=== PATIENT | female | born 1970 | race Caucasian/White ===

== ENCOUNTER 2016-02-25 12:44 | Emergency (ER) | payer OTHER ==
--- NOTE | 2016-02-25 14:17 | DIAGNOSTIC IMAGING REPORT ---
PROCEDURE: XR CHEST 2 VIEW INDICATION: SHORTNESS OF BREATH, initial encounter TECHNIQUE: PA and lateral view. COMPARISON: None. FINDINGS: Small right middle lobe infiltrate. Pericardial fat pads are present pill Cardiovascular structures are normal. Bony thorax is unremarkable. IMPRESSION: 1. Right middle lobe infiltrate .
--- NOTE | 2016-02-25 16:57 | DIAGNOSTIC IMAGING REPORT ---
PROCEDURE: CTA THORAX WITH CONTRAST INDICATION: SHORTNESS OF BREATH, initial encounter TECHNIQUE: 92 ml of Isovue 370 was injected intravenously and axial images were obtained of the entire thorax with 3D sagittal and coronal MIP reconstructions. COMPARISON: Chest x-ray 02/25/[address] pulmonary angiogram 11/16/2015. FINDINGS: No evidence of pulmonary emboli. Mild bibasilar atelectasis. No adenopathy or effusion. No aortic dissection or aneurysm. Normal heart size. Visualized upper abdomen is unremarkable. Mild degenerative changes of the spine. IMPRESSION: 1. No evidence of pulmonary emboli. 2. Mild bibasilar atelectasis 3. Results discussed with Dr. Arenas
--- NOTE | 2016-02-25 17:42 | ED ORDER SUMMARY ---
..... Patient: FRED YU [facility] VisitID: [id number] [place] [address] 45y, F Registration Date/Time: 02/25/2016 ORDER SHEET Weight: 140 kg Allergies: Percocet GENERAL ORDERS: Chest 2V Urgent (13:02/25/2016 Brandyn CARLIN) (Ack 13:32 Tyron) (14:49 Bree) Rapid Influenza Screen (Nasal Pharyngeal) (911 EMERGENCY DISPATCHER) Urgent (13:02/25/2016 Brandyn CARLIN) (Ack 13:32 Tyron) (13:44 EInderbitzen R.N.) CBC w Diff Urgent (13:02/25/2016 Brandyn CARLIN) (Ack 13:32 Tyron) (13:44 EInderbitzen R.N.) CMP Urgent (13:02/25/2016 Brandyn CARLIN) (Ack 13:32 Tyron) (13:44 EInderbitzen R.N.) Urine Urgent (13:30 02/25/2016 Brandyn CARLIN) (Ack 13:32 Tyron) (13:44 EInderbitzen R.N.) PT with INR Urgent (14:02/25/2016 Brandyn CARLIN) (Ack 14:27 LTapper) (15:29 EInderbitzen R.N.) PTT Urgent (14:02/25/2016 Brandyn CARLIN) (Ack 14:27 LTapper) (15:29 EInderbitzen R.N.) D-Dimer Urgent (14:22 02/25/2016 Brandny CARLIN) (Ack 14:27 LTapper) (15:29 EInderbitzen R.N.) CTA Thorax w Cont (No) (See report) Urgent (15:02/25/2016 Brandyn CARLIN) (Ack 15:26 Tyron) (16:50 Bree) MEDICATION ORDERS: Albuterol Neb Tx 2.5 mg (NOW) (13:02/25/2016 Prakash R.N. per protocol) (Ack 13:01 SBaldcordell R.N.) (13:01 Prakash R.N.) - (Tamiflu 75 mg po now) (17:12 02/25/2016 Brandyn CARLIN) (17:13 EInderbitmaryam R.N.) IV FLUIDS: Solu-MEDROL IV 125 mg (NOW) (13:29 02/25/2016 Brandyn CARLIN) (13:44 EInderbitmaryam R.N.) IV Saline Lock (13:30 02/25/2016 Brandyn CARLIN) (13:44 EIiva R.N.) IV NS : initial bolus 500 mL (1000 mL/hr), then 125 mL/hr for 4h (NOW); Urgent (15:23 02/25/2016 Brandyn CARLIN) (Ack 15:29 EInderbitzen R.N.) (15:38 EInderbitzen R.N.) ORDER SHEET NOTES: [Electronically signed by Naoim Powell R.N. (17:52 02/25/2016)] [Electronically signed by Georges Arenas MD (19:24 02/25/2016)] [Electronically locked/signed by Naomi Powell R.N. (17:52 02/25/2016)]
--- NOTE | 2016-02-25 17:42 | ED ORDER SUMMARY ---
..... Patient: FRED YU OrderSheet [facility] VisitID: [id number] [place] [address] 45y, F Registration Date/Time: 02/25/2016 ORDER SHEET Weight: 140 kg Allergies: Percocet GENERAL ORDERS: Chest 2V Urgent (13:02/25/2016 Brandyn CARLIN) (Ack 13:32 Tyron) (14:49 Bree) Rapid Influenza Screen (Nasal Pharyngeal) (ROUTE RETURNER) Urgent (13:02/25/2016 Brandyn CARLIN) (Ack 13:32 Tyron) (13:44 EInderbitzen R.N.) CBC w Diff Urgent (13:02/25/2016 Brandyn CARLIN) (Ack 13:32 Tyron) (13:44 EInderbitzen R.N.) CMP Urgent (13:02/25/2016 Brandyn CARLIN) (Ack 13:32 Tyron) (13:44 EInderbitzen R.N.) Urine Urgent (13:30 02/25/2016 Brandyn CARLIN) (Ack 13:32 Tyron) (13:44 EInderbitzen R.N.) PT with INR Urgent (14:02/25/2016 Brandyn CARLIN) (Ack 14:27 LTapper) (15:29 EInderbitzen R.N.) PTT Urgent (14:02/25/2016 Brandyn CARLIN) (Ack 14:27 LTapper) (15:29 EInderbitzen R.N.) D-Dimer Urgent (14:22 02/25/2016 Brandyn CARLIN) (Ack 14:27 LTapper) (15:29 EInderbitzen R.N.) CTA Thorax w Cont (No) (See report) Urgent (15:02/25/2016 Brandyn CARLIN) (Ack 15:26 Tyron) (16:50 Bree) MEDICATION ORDERS: Albuterol Neb Tx 2.5 mg (NOW) (13:02/25/2016 Prakash R.N. per protocol) (Ack 13:01 SBaldcordell R.N.) (13:01 Prakash R.N.) - (Tamiflu 75 mg po now) (17:12 02/25/2016 Brandyn CARLIN) (17:13 EInderbitmaryam R.N.) IV FLUIDS: Solu-MEDROL IV 125 mg (NOW) (13:29 02/25/2016 Brandyn CARLIN) (13:44 EInderbitmaryam R.N.) IV Saline Lock (13:30 02/25/2016 Brandyn CARLIN) (13:44 EIiva R.N.) IV NS : initial bolus 500 mL (1000 mL/hr), then 125 mL/hr for 4h (NOW); Urgent (15:23 02/25/2016 Barndyn CARLIN) (Ack 15:29 EInderbitzen R.N.) (15:38 EInderbitzen R.N.) ORDER SHEET NOTES: [Electronically signed by Naomi Powell R.N. (17:52 02/25/2016)] [Electronically signed by Georges Arenas MD (19:24 02/25/2016)] [Electronically locked/signed by Naomi Powell R.N. (17:52 02/25/2016)]
--- NOTE | 2016-02-25 17:42 | ED NURSING NOTES ---
Clinical Report - Nurses [facility] [address] [place] [address] 02/25/2016 12:45 [id number] Triage time 12:52 Feb 25 2016. Acuity: LEVEL 2. Chief Complaint: SHORTNESS OF BREATH, DIFFICULTY BREATHING, "ASTHMA ATTACK" and WHEEZING. Alert. No acute distress. (anxious). --13:01 Bhumi Higgins R.N. 12:52 02/25/16. HR: 90. RR: 22. O2 saturation: 92%. --13:01 Bhumi Higgins R.N. 13:06 02/25/16. BP: 112/67. --13:07 Bhumi Higgins R.N. 13:09 02/25/16. Temp: 98.1 F. --13:09 Prince Lilly. Weight: 140 kg. Height/Length: 71 inches. BMI: 43.1. --12:51 Naomi Powell R.N. Medications Albuterol Sulfate HFA Inhalation 2 puffs, 6 x day, asthma. Morphine Sulfate (Concentrate) Oral 15mg, BID. Morphine Sulfate CR Oral 30mg, TID. ProAir HFA Inhalation 2 puffs, every 4 hrs (prn). --12:58 Bhumi Higgins R.N. Medication/allergy information source: the patient. --13:01 Bhumi Higgins R.N. Allergies Percocet. Definite Moderate(nausea, vomiting) --12:58 Bhumi Higgins R.N. History Arrived by private vehicle. Historian: patient. Primary physician (Zena Willoughby). ( Pt has been on Z Pack and Prednisone 5 days. completed course, no better, still wheezing, and deep cough, sore throat from coughing.). Onset. (since 0600). She has had wheezing. 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 PAST MEDICAL HX: Asthma. Has not received seasonal influenza immunization. SOCIAL HX: Never smoker. No alcohol use or drug use. No infectious disease exposure. FALL RISK ASSESSMENT: Fall risk assessment completed. No fall risk identified. NUTRITIONAL RISK ASSESSMENT: The nutritional risk assessment revealed no deficiencies. FUNCTIONAL ASSESSMENT: Functional assessment: no impairments noted. LEARNING NEEDS ASSESSMENT: The learning needs assessment revealed no barriers. SKIN INTEGRITY ASSESSMENT: Skin integrity risk assessment completed. No skin integrity risk identified. --13:01 Bhumi Higgins R.N. PROBLEMS: Anxiety Reaction. Atypical Chest Pain. Dyspnea. Pneumonia. URI. LNMP - Last Normal Menstrual Period. Muscle Strain, Lower Extremity. Fall. Knee Injury. Lung Disease. Tetanus Status. UTI - Urinary Tract Infection. Myofascial Strain. Back Pain. Back Injury. Shoulder Injury. Bronchitis. Asthma. Immunizations. --12:59 Bhumi Higgins R.N. Pulmonary Embolism [RuleOut]. --12:59 Bhumi Higgins R.N. ADDITIONAL SURGERIES: Knee Surgery. Tonsillectomy. Tubal Ligation. --12:59 Bhumi Higgins R.N. Interventions ID band on patient. To room. --13:01 Bhumi Higgins R.N. PHYSICAL ASSESSMENT Ambulatory to room. GENERAL / NEURO / PSYCH: Oriented X 4. Appears in no acute distress. RESPIRATORY: Moderate respiratory distress. The patient can speak a few words at a time. CVS: Capillary refill less than 2 seconds. SKIN: Skin is warm and dry. --13:02 Bhumi Higgins R.N. GENERAL / NEURO / PSYCH: ( error in the above charting, pt was in acute distress over not breathing, SOB and wheezing.). --13:08 Bhumi Higgins R.N. 13:12 02/25/16. GENERAL / NEURO / PSYCH: Alert. Oriented X 4. HEENT: Mucous membranes are pink. RESPIRATORY: Moderate respiratory distress. The patient can speak a few words at a time. Accessory muscle use. Decreased breath sounds. Wheezing present. CVS: Capillary refill less than 2 seconds. GI / : Abdomen soft and nontender. SKIN: Skin is warm and dry. Normal skin turgor. --13:12 Naomi Powell R.N. NURSING PROGRESS NOTES 13:01 02/25/2016 Albuterol Neb TX 1 unit dose given. Given by the nurse. --13:01 Bhumi Higgins R.N. ( Prince roomed pt to room 3, MYLES Salgado to assume care.). --13:05 Bhumi Higgins R.N. 13:12 02/25/16. The initial plan of care for this patient includes an assessment with efforts to address impairment of the respiratory system. This plan of care was discussed with the patient. Patient gowned. Reassurance given. Patient identifiers checked. Call light placed in reach. Side rails up x 1. Bed placed in lowest position. Brakes of bed on. Patient ready for evaluation. --13:12 Naomi Powell R.N. 13:35 02/25/2016 Site #1 started via IV in the right wrist with an 20g angiocath, with aseptic technique and good blood return; one attempt. Blood drawn: rainbow set. Labeled in the presence of the patient and sent to the lab. Saline lock flushed with 10 mL saline. --13:44 Naomi Powell R.N. 13:35 02/25/16. Patient ID band checked for patient name and birthdate: patient confirmed. Instructions provided to collect clean catch urine and patient verbalized understanding. Clean catch urine collected with return of yellow-colored clear urine; sample sent to lab for urinalysis and HCG. Specimen labeled in the presence of the patient. --13:45 Naomi Powell R.N. 13:37 02/25/2016 SOLU-MEDROL (MethylPREDNISolone Sodium Succ) IVP 125 mg given over 1 minute(s) via site #1. Allergies verified and confirmed 5 rights. IV patency established. IV site checked: no pain, redness, or swelling. IV flushed thoroughly pre- and post-medication administration. IVP given by RN. --13:44 Naomi Powell R.N. 14:10 02/25/16. Critical value relayed to ED by Onesimo. Critical value received by Paulette. Influenza B positive. Critical value read back. --14:10 Naomi Powell R.N. 14:45 02/25/16. BP: 122/64. HR: 92. RR: 22. O2 saturation: 96%. Pain level now 5/10. --14:45 Naomi Powell R.N. 14:45 02/25/16. The patient is calm and resting quietly. Overall patient status is improved- she states feels the same. ( dry hacking cough). RESPIRATORY: Decreased breath sounds. Wheezing present. SKIN: Skin is warm and dry. --14:45 Naomi Powell R.N. 15:35 02/25/2016 Started bag #1 1000 mL IV Fluids IV NS (Saline); bolus of 500 mL over 30 minute(s) then at 125 mL/hr over 4 hour(s) via site #1 via IV pump. Allergies verified and confirmed 5 rights. IV patency established. IV site checked: no pain, redness, or swelling. IV flushed thoroughly pre- and post-medication administration. --15:38 Naomi Powell R.N. 15:40 02/25/16. The patient is calm and resting quietly. --15:40 Naomi Powell R.N. 15:40 02/25/16. BP: 117/60. HR: 99. RR: 22. O2 saturation: 96% on room air. --15:40 Naomi Powell R.N. 15:50 02/25/2016 Site #2 started via IV in the right forearm with an 20g angiocath, with aseptic technique and good blood return; one attempt. Saline lock flushed with 10 mL saline. --15:55 Naomi Powell R.N. 16:15 02/25/16. ( chest ct completed). --16:15 Naomi Powell R.N. 16:50 02/25/16. The patient is calm and resting quietly. RESPIRATORY: Decreased breath sounds. Wheezing present. Patient waiting for CT results. --16:50 Naomi Powell R.N. 17:13 02/25/2016 Tamiflu PO Capsules 75 mg given. Allergies verified and confirmed 5 rights. --17:13 Naomi Powell R.N. DISPOSITION / DISCHARGE 17:49 02/25/2016 Site #1 removed upon discharge. Catheter intact. Pressure dressing applied. --17:49 Naomi Powell R.N. 17:49 02/25/2016 Site #2 removed upon discharge. Catheter intact. Pressure dressing and bandage applied. --17:49 Naomi Powell R.N. 17:49 02/25/16. Condition at departure: improved. The goals identified in the patient's plan of care were met. FALL RISK ASSESSMENT: Fall risk assessment completed. No fall risk identified. --17:49 Naomi Powell R.N. 17:49 02/25/16. BP: 114/76. HR: 96. RR: 20. O2 saturation: 96%. Temp: 98.4 F. Pain level now 0/10. --17:49 Naomi Powell R.N. 17:51 02/25/16. No learning barriers present. Discharge instructions provided and reviewed with the patient. Reviewed medication(s) side effects, precautions, dosing and course information. Prescription(s) given to the patient. Reviewed fever care and nebulizer use instructions. Reviewed referral to a primary care physician for followup. The patient was discharged home and unaccompanied at time of discharge. She left the Emergency Department ambulatory and via private vehicle. Patient driving. --17:51 Naomi Powell R.N. Departure time: 17:51 Feb 25 2016. --17:51 Naomi Powell R.N. Locked/Released at 02/25/2016 17:52 by Naomi Powell R.N.
--- NOTE | 2016-02-25 17:42 | ED CLINICAL REPORT ---
Clinical Report - Physicians/Mid Levels [facility] [address] [place] [address] 02/25/2016 12:45 [id number] Time Seen: 13:03. Arrived- By private vehicle. Historian- patient. HISTORY OF PRESENT ILLNESS Chief Complaint: DYSPNEA. This started about 1 week ago and is still present and worsening. It has been constant and waxing/waning. The dyspnea is described as severe. The patient has had a moderate cough productive of thick, yellow sputum. She has had chest discomfort. (The patient reports that she was seen by her primary care provider and diagnosed with an asthma exacerbation And bronchitis. She was started on prednisone and azithromycin. She seemed to be having some improvement. However over the past few days she has started to feel worse her cough has progressed and she is bringing up more phlegm. She has one more day in her 5 day course of these medications.). REVIEW OF SYSTEMS The patient has had muscle aches and fatigue and experienced sweats. No calf pain, pedal edema, palpitations, abdominal pain or constipation. No diarrhea, nausea, vomiting or urinary problems. she has not received seasonal influenza immunization. All systems otherwise negative, except as recorded above. PAST HISTORY Problems: Anxiety Reaction. Atypical Chest Pain. Dyspnea. Pneumonia. URI. Muscle Strain, Lower Extremity. Fall. Knee Injury. Lung Disease. UTI - Urinary Tract Infection. Myofascial Strain. Back Pain. Back Injury. Shoulder Injury. Bronchitis. Asthma. Pulmonary Embolism [RuleOut]. Additional Surgeries: Knee Surgery. Tonsillectomy. Tubal Ligation. Medications: Albuterol Sulfate HFA Inhalation 2 puffs, 6 x day, asthma. Morphine Sulfate (Concentrate) Oral 15mg, BID. Morphine Sulfate CR Oral 30mg, TID. ProAir HFA Inhalation 2 puffs, every 4 hrs (prn). Allergies: Percocet. Definite Moderate(nausea, vomiting). SOCIAL HISTORY Never smoker. No alcohol use or drug use. FAMILY HISTORY No significant family medical history. ADDITIONAL NOTES The nursing notes have been reviewed. PHYSICAL EXAM Vital Signs: 02/25/2016 13:09 Temp: 98.1 F. 02/25/2016 13:06 BP: 112/67. 02/25/2016 12:52 HR: 90. RR: 22. O2 saturation: 92%. Have been reviewed. Appearance: Alert. Patient in mild distress. Eyes: Pupils equal, round and reactive to light. ENT: Pharynx normal. Uvula midline. Neck: Normal inspection. Neck supple. CVS: Normal heart rate and rhythm. Heart sounds normal. Respiratory: Prolonged expirations. Decreased air movement. Wheezing present. Abdomen: Soft and nontender. No organomegaly. Obese. Back: Normal inspection. No CVA tenderness. Skin: Skin warm and dry. Normal skin color. No rash. Normal skin turgor. Extremities: Extremities exhibit normal ROM. No calf tenderness. No lower extremity edema. LABS, X-RAYS, AND EKG Chest X-ray: (IMPRESSION: 1. Right middle lobe infiltrate .). The X-rays were interpreted by the radiologist and contemporaneously by me. Chest CT: (PROCEDURE: CTA THORAX WITH CONTRAST INDICATION: SHORTNESS OF BREATH, initial encounter TECHNIQUE: 92 ml of Isovue 370 was injected intravenously and axial images were obtained of the entire thorax with 3D sagittal and coronal MIP reconstructions. COMPARISON: Chest x-ray 02/25/[address] pulmonary angiogram 11/16/2015. FINDINGS: No evidence of pulmonary emboli. Mild bibasilar atelectasis. No adenopathy or effusion. No aortic dissection or aneurysm. Normal heart size. Visualized upper abdomen is unremarkable. Mild degenerative changes of the spine. IMPRESSION: 1. No evidence of pulmonary emboli. 2. Mild bibasilar atelectasis). The study was interpreted contemporaneously by me and discussed with the radiologist. Laboratory Tests: Urine: (KALI: 02/25/2016 13:35) ( Mscvd 02/25/2016 13:56) Final results Test Result Flag Units (Reference) URINE NEGATIVE CBC w Diff: (KALI: 02/25/2016 13:15) ( MsgRcvd 02/25/2016 13:54) Final results Test Result Flag Units (Reference) WHITE BLOOD COUNT 7.9 K/uL (4.5-11.5) RED BLOOD COUNT 5.07 M/uL (4.00-5.20) HEMOGLOBIN 14.4 gm/dL (12.0-16.0) HEMATOCRIT 44.6 % (36.0-46.0) MEAN CELL VOLUME 88 fL (80-100) MEAN CORPUSCULAR HGB 29 pg (26-34) MEAN CORPUSCULAR HGB CONC 32 g/dL (31-37) RED CELL DISTRIBUTION WIDTH 13.0 % (11.6-14.8) PLATELET COUNT 180 K/uL (150-400) NEUTROPHIL % 70.9 % (50-75) LYMPH % 18.4 L % (25-40) MONO % 10.3 % (3-14) EOSINOPHIL % 0.1 % (0-4) BASOPHIL % 0.3 % (0-2) PT with INR: (KALI: 02/25/2016 14:30) ( [facility] 02/25/2016 15:15) Final results Test Result Flag Units (Reference) INR 0.9 (0.8-1.2) Low Intensity Therapy: INR 1.5-2.0 PT range 18.5-23.1Mod.Intensity Therapy: INR 2.0-3.0 PT range 23.1-31.5High Intensity Therapy: INR 2.5-3.5 PT range 27.4-35.5High Intensity Therapy 2: INR 3.0-4.0 PT range 31.5-39.3 APTT 29 SECONDS (24-34) D-DIMER QUANTITATIVE 0.61 H ug/mLFEU (0.27-0.52) The primary value of this quantitative assay relates toits negative predictive value (i.e. exclusion) of pulmonaryembolism/deep vein thrombosis/DIC.Elevated levels of d-dimer may also occur with:, age, cancer, inflammation, liver disease,post-op, infection, hematoma, coronary disease, peripheralarteriopathy, bleeding disorders and thrombolytic treatment.Results should be correlated with other clinical andradiological data.Testing Methodology: Latex Immunoassay CMP: (KALI: 02/25/2016 13:15) ( [facility] 02/25/2016 14:06) Final results Test Result Flag Units (Reference) GLUCOSE 137 H mg/dL (70-110) BUN 16 mg/dL (7-18) CREATININE 1.0 mg/dL (0.6-1.3) Estimated GFR >60 mL/min Estimated GFR- >60 mL/min Note: Persistent reduction over 3 months in eGFR<60 mL/min/1.73 m2 defines CKD. Patients with eGFR values>=60 mL/min/1.73 m2 may also have CKD if evidence ofpersistent proteinuria. Additional information may be foundat www.kidney.org. SODIUM 143 mmol/L (136-145) POTASSIUM 4.9 mmol/L (3.5-5.1) CHLORIDE 108 H mmol/L (98-107) CARBON DIOXIDE 27 mmol/L (21-32) CALCIUM 8.6 mg/dL (8.5-10.1) TOTAL PROTEIN 7.1 g/dL (6.4-8.2) ALBUMIN 3.4 g/dL (3.3-5.0) BILIRUBIN, TOTAL 0.4 mg/dL (0.0-1.0) ALKALINE PHOSPHATASE 86 U/L (46-116) AST (SGOT) 25 U/L (15-37) ALT (SGPT) 32 U/L (12-78) Rapid Influenza Screen: (KALI: 02/25/2016 13:40) ( MsgRcvd 02/25/2016 14:11) Final results SPECIMEN DESCRIPTION: FABRICATION INSPECTOR Test Result Flag Units (Reference) RAPID INFLUENZA SCREEN CALLED TO: GOKUL DUMAS RN -- DATE: 02/25/16 INFLUENZA A: NEGATIVE SCREEN FOR INFLUENZA A INFLUENZA B: POSITIVE SCREEN FOR INFLUENZA B . PROGRESS AND PROCEDURES Course of Care: Symptoms better. Vital signs have been reviewed. Physical exam findings are improved. Alert. No acute distress. Breath sounds normal. No respiratory distress. Normal heart rate and rhythm. Heart sounds normal. Abdomen soft and nontender. Skin warm and dry. Patient/family counseled. Old medical records reviewed. Disposition: Discharged. Condition: stable. CLINICAL IMPRESSION Asthma. Influenza type B. INSTRUCTIONS Warnings: Further evaluation is necessary. GENERAL WARNINGS: Return or contact your physician immediately if your condition worsens or changes unexpectedly, if not improving as expected, or if other problems arise. Your Current Medications: CONTINUE TAKING THE FOLLOWING MEDICATIONS: Albuterol Sulfate HFA Inhalation : 2 puffs 6 x day, asthma. Morphine Sulfate (Concentrate) Oral : 15mg BID. Morphine Sulfate CR Oral : 30mg TID. ProAir HFA Inhalation : 2 puffs every 4 hrs, prn. Prescription Medications: Tamiflu 75 mg: take 1 capsule orally every 12 hours for 5 days. No refill. Substitution is permissible. (9 pills) Prednisone 10 mg tablets: take 4 orally every day for 5 days, then 2 every day for 3 days, then 1 every day for 2 days. Dispense twenty-eight (28). No refills. Follow-up: Follow up with your doctor in two days. Call for an appointment. Understanding of the discharge instructions verbalized by patient. (Electronically signed by Georges Arenas MD 02/25/2016 19:24)
--- NOTE | 2016-02-25 19:24 | ED MED RECONCILIATION SUMMARY ---
Patient: FRED YU Medication Reconciliation Report [facility] VisitID: [id number] [address] [place] [address] 45y, F Registration Date/Time: 02/25/2016 Weight: 140 kg Height/Length: 71 in. BMI: 43.1 ALLERGIES: Percocet The patient's Home Medications are listed below: CONTINUE TAKING THE FOLLOWING MEDICATIONS: Albuterol Sulfate HFA Inhalation 2 puffs, 6 x day, asthma Morphine Sulfate (Concentrate) Oral 15mg, BID Morphine Sulfate CR Oral 30mg, TID ProAir HFA Inhalation 2 puffs, every 4 hrs, prn The source(s) of the original Home Medication information: patient The following Medications were given to the patient in the Emergency Department: Albuterol [Neb Tx] Neb TX 1 unit dose, administered: 02/25/2016 1:01:00 PM SOLU-MEDROL [IVP] IVP 125 mg, administered: 02/25/2016 1:37:00 PM IV NS IV Fluids bolus 500 mL over 30 minute(s), then 125 mL/hr, administered: 02/25/2016 3:35:00 PM Tamiflu [PO] PO 75 mg, administered: 02/25/2016 5:13:00 PM The following Medications were prescribed to the patient: Tamiflu 75 mg: take 1 capsule orally every 12 hours for 5 days. No refill. Substitution is permissible.(9 pills) -- Georges Arenas MD Prednisone 10 mg tablets: take 4 orally every day for 5 days, then 2 every day for 3 days, then 1 every day for 2 days. Dispense twenty-eight (28). No refills. -- Georges Arenas MD
--- NOTE | 2016-02-25 19:24 | ED MAR SUMMARY ---
..... Medication Administration Record [facility] [address] [place] [place] [address] Patient: FRED YU Visit ID: [id number] 45y, F Weight: 140.0 kg Height/Length: 71 in BMI: 43.1 ALLERGIES: Percocet Given 13:01 02/25/2016 Bhumi Higgins R.N. Medication Administered: ALBUTEROL [NEB TX], Dose: 1 unit dose Neb TX. Medication Ordered: Albuterol Neb Tx 2.5 mg (NOW). Given 13:37 02/25/2016 Naomi Powell R.N. Medication Administered: SOLU-MEDROL [IVP] (METHYLPREDNISOLONE SODIUM SUCC), Dose: 125 mg IVP over 1 minute(s), Site: #1 right wrist. Medication Ordered: Solu-MEDROL IV 125 mg (NOW). Start 15:35 02/25/2016 Naomi Powell R.N. Medication Administered: IV NS (SALINE), Dose: IV Fluids over 4 hour(s), Rate: 125 mL/hr, Bolus: 500 mL over 30 minute(s), Dispensed: 1000 mL bag, Site: #1 right wrist. Medication Ordered: IV NS : initial bolus 500 mL (1000 mL/hr), then 125 mL/hr for 4h (NOW); Urgent. Given 17:13 02/25/2016 Naomi Powell R.N. Medication Administered: TAMIFLU [PO], Dose: 75 mg Capsules PO. Medication Ordered: - (Tamiflu 75 mg po now).
--- NOTE | 2016-02-25 19:24 | ED MAR SUMMARY ---
..... Medication Administration Record [facility] [address] [place] [address] Patient: FRED YU Visit ID: [id number] 45y, F Weight: 140.0 kg Height/Length: 71 in BMI: 43.1 ALLERGIES: Percocet Given 13:01 02/25/2016 Bhumi Higgins R.N. Medication Administered: ALBUTEROL [NEB TX], Dose: 1 unit dose Neb TX. Medication Ordered: Albuterol Neb Tx 2.5 mg (NOW). Given 13:37 02/25/2016 Naomi Powell R.N. Medication Administered: SOLU-MEDROL [IVP] (METHYLPREDNISOLONE SODIUM SUCC), Dose: 125 mg IVP over 1 minute(s), Site: #1 right wrist. Medication Ordered: Solu-MEDROL IV 125 mg (NOW). Start 15:35 02/25/2016 Naomi Powell R.N. Medication Administered: IV NS (SALINE), Dose: IV Fluids over 4 hour(s), Rate: 125 mL/hr, Bolus: 500 mL over 30 minute(s), Dispensed: 1000 mL bag, Site: #1 right wrist. Medication Ordered: IV NS : initial bolus 500 mL (1000 mL/hr), then 125 mL/hr for 4h (NOW); Urgent. Given 17:13 02/25/2016 Naomi Powell R.N. Medication Administered: TAMIFLU [PO], Dose: 75 mg Capsules PO. Medication Ordered: - (Tamiflu 75 mg po now).
--- NOTE | 2016-02-25 19:24 | ED DISCHARGE INSTRUCTIONS ---
Patient: FRED YU General Instructions [facility] VisitID: [id number] [place] [address] 45y, F Registration Date/Time: 02/25/2016 Asthma. Influenza type B. INSTRUCTIONS Warnings: Further evaluation is necessary. GENERAL WARNINGS: Return or contact your physician immediately if your condition worsens or changes unexpectedly, if not improving as expected, or if other problems arise. Your Current Medications: CONTINUE TAKING THE FOLLOWING MEDICATIONS: Albuterol Sulfate HFA Inhalation : 2 puffs 6 x day, asthma. Morphine Sulfate (Concentrate) Oral : 15mg BID. Morphine Sulfate CR Oral : 30mg TID. ProAir HFA Inhalation : 2 puffs every 4 hrs, prn. Prescription Medications: Tamiflu 75 mg: take 1 capsule orally every 12 hours for 5 days. No refill. Substitution is permissible. (9 pills) Prednisone 10 mg tablets: take 4 orally every day for 5 days, then 2 every day for 3 days, then 1 every day for 2 days. Dispense twenty-eight (28). No refills. Follow-up: Follow up with your doctor in two days. Call for an appointment. Understanding of the discharge instructions verbalized by patient. ADDITIONAL INFORMATION Asthma [Adult] Asthma is a disease where the small air passages within the lung go into spasm and restrict the flow of air. Inflammation and swelling of the airways cause further restriction. During an acute asthma attack, these factors cause difficulty breathing, wheezing, cough and chest tightness. An asthma attack can be triggered by many things. Common triggers include the common cold, bronchitis, pneumonia, irritants such as smoke or pullutants in the air, emotional upset and heavy exercise. Inmany adults with asthma, allergies todust, mold, pollen and animal dander can cause an asthma attack. Skipping doses of daily asthma medicine can also bring on an asthma attack. Asthma can be controlled with proper medicines and decreased exposure to known allergens. Home Care: Take prescribed medicine exactly at the times advised. If you have a hand-held inhaler or aerosol breathing medicine, do not use it more than once every four hours, unless told to do so. (If you need this medicine more than every four hours, you may need to return to the Emergency Room.) If prescribed an antibiotic or prednisone, take all of the medicine even if you are feeling better after a few days. Do not smoke. Avoid being exposed to the smoke of others. Some persons with asthma have worsening of their symptoms when they take aspirin and non-steroidal medicines like ibuprofen (Motrin, Advil) and naproxen (Aleve, Naprosyn). Talk to your doctor if you think this may apply to you. Acetaminophen (Tylenol)should be safe to use. Follow Up with your doctor, or as advised by our staff. Always bring all of your current medicines with you for your doctor to see. If you do not already have one, talk to your doctor about developing a personalized "Asthma Action Plan." [NOTE: A pneumococcal vaccine and yearly flu shot (every fall) are recommended. Ask your doctor about this.] Get Prompt Medical Attention if any of the following occur: Increased wheezing or shortness of breath Need to use your inhalers more often than usual without relief Fever of 100.4F (38C) or higher, or as directed by your healthcare provider Coughing up lots of dark-colored or bloody sputum (mucus) Chest pain with each breath You do not start to improve within 24 hours Call 911 If Any Of The Following Occur : Trouble walking or talking because of shortness of breath If you use a peak flow meter andyou are still in the red zone (less than 50 percent) 15 minutes after using inhaler medication Lips or fingernails turning singer or blue Influenza (Adult) Influenza, also called the flu, is a viral illness that affects the air passages of the lungs. It differs from the common cold. It is highly contagious. It may be spread through the air by coughing and sneezing or by direct contact (touching the sick person and then touching your own eyes, nose or mouth). Illness starts 1-3 days after exposure and lasts for 1-2 weeks. Antibiotics are usually not needed unless a complication appears (ear or sinus infection or pneumonia). Symptoms may be mild or severe and can include extreme tiredness (wanting to stay in bed all day), chills, fevers, muscle aching, soreness with eye movement, headache, and a dry, hacking cough. Home Care: Avoid exposure to cigarette smoke (yours or others). Tylenol or ibuprofen (Advil) will help fever, muscle aching, and headache. To avoid risk of liver injury, aspirin should not be used in children and teenagers under 18 with this illness. Nausea and loss of appetite are common. A light diet is recommended. Avoid dehydration by drinking 6-8 glasses of fluids per day (water, sport drinks like Gatorade, soft drinks without caffeine, juices, tea, soup, etc.). Extra fluids will also help loosen secretions in the nose and lungs. Drxy-[id number]-[id number] cold medicines will not shorten the duration of the illness but may be helpful for the following symptoms: cough (Robitussin DM); sore throat (Chloraseptic lozenges or spray); nasal and sinus congestion (Actifed or Sudafed). [NOTE: Do not use decongestants if you have high blood pressure.] Stay home until your fever has been gone for at least 24 hours (without the use of fever-reducing medications such as ibuprofen). Follow Up with your doctor or as directed by our staff if you are not improving over the next week. Note: If you are age 65 or older, or if you have chronic asthma or COPD, we recommend a pneumococcal vaccinationevery five years. All adults shouldreceive a yearly influenza vaccination every . Ask your doctor about this. Get Prompt Medical Attention if any of the following occur: Cough with lots of colored sputum (mucus) or blood in your sputum Chest pain, shortness of breath, wheezing, or difficulty breathing Severe headache, face, neck or ear pain New rash Fever of 100.4F (38C) oral or higher, not better with fever medication Confusion, behavior change or seizure Severe weakness or dizziness Oseltamivir Phosphate Oral capsule What is this medicine? OSELTAMIVIR (os el MALONE i vir) is an antiviral medicine. It is used to prevent and to treat some kinds of influenza or the flu. It will not work for colds or other viral infections. How should I use this medicine? Take this medicine by mouth with a glass of water. Follow the directions on the prescription label. Start this medicine at the first sign of flu symptoms. You can take it with or without food. If it upsets your stomach, take it with food. Take your medicine at regular intervals. Do not take your medicine more often than directed. Take all of your medicine as directed even if you think you are better. Do not skip doses or stop your medicine early. Talk to your right of way maintenance supervisor regarding the use of this medicine in children. While this drug may be prescribed for children as young as 14 days for selected conditions, precautions do apply. What side effects may I notice from receiving this medicine? Side effects that you should report to your doctor or health manager long term care as soon as possible: allergic reactions like skin rash, itching or hives, swelling of the face, lips, or tongue anxiety, confusion, unusual behavior breathing problems hallucination, loss of contact with reality redness, blistering, peeling or loosening of the skin, including inside the mouth seizures Side effects that usually do not require medical attention (report to your doctor or health manager long term care if they continue or are bothersome): cough diarrhea dizziness headache nausea, vomiting stomach pain What may interact with this medicine? Interactions are not expected. What if I miss a dose? If you miss a dose, take it as soon as you remember. If it is almost time for your next dose (within 2 hours), take only that dose. Do not take double or extra doses. Where should I keep my medicine? Keep out of the reach of children. Store at room temperature between 15 and 30 degrees C (59 and 86 degrees F). Throw away any unused medicine after the expiration date. What should I tell my health care provider before I take this medicine? They need to know if you have any of the following conditions: heart disease immune system problems kidney disease liver disease lung disease an unusual or allergic reaction to oseltamivir, other medicines, foods, dyes, or preservatives or trying to get breast-feeding What should I watch for while using this medicine? Visit your doctor or health manager long term care for regular check ups. Tell your doctor if your symptoms do not start to get better or if they get worse. If you have the flu, you may be at an increased risk of developing seizures, confusion, or abnormal behavior. This occurs early in the illness, and more frequently in children and teens. These events are not common, but may result in accidental injury to the patient. Families and caregivers of patients should watch for signs of unusual behavior and contact a doctor or health manager long term care right away if the patient shows signs of unusual behavior. This medicine is not a substitute for the flu shot. Talk to your doctor each year about an annual flu shot. Prednisone Oral tablet What is this medicine? PREDNISONE (PRED ni sone) is a corticosteroid. It is commonly used to treat inflammation of the skin, joints, lungs, and other organs. Common conditions treated include asthma, allergies, and arthritis. It is also used for other conditions, such as blood disorders and diseases of the adrenal glands. How should I use this medicine? Take this medicine by mouth with a glass of water. Follow the directions on the prescription label. Take this medicine with food. If you are taking this medicine once a day, take it in the morning. Do not take more medicine than you are told to take. Do not suddenly stop taking your medicine because you may develop a severe reaction. Your doctor will tell you how much medicine to take. If your doctor wants you to stop the medicine, the dose may be slowly lowered over time to avoid any side effects. Talk to your right of way maintenance supervisor regarding the use of this medicine in children. Special care may be needed. What side effects may I notice from receiving this medicine? Side effects that you should report to your doctor or health manager long term care as soon as possible: allergic reactions like skin rash, itching or hives, swelling of the face, lips, or tongue changes in emotions or moods changes in vision depressed mood eye pain fever or chills, cough, sore throat, pain or difficulty passing urine increased thirst swelling of ankles, feet Side effects that usually do not require medical attention (report to your doctor or health manager long term care if they continue or are bothersome): confusion, excitement, restlessness headache nausea, vomiting skin problems, acne, thin and shiny skin trouble sleeping weight gain What may interact with this medicine? Do not take this medicine with any of the following medications: metyrapone mifepristone This medicine may also interact with the following medications: aminoglutethimide amphotericin B aspirin and aspirin-like medicines barbiturates certain medicines for diabetes, like glipizide or glyburide cholestyramine cholinesterase inhibitors cyclosporine digoxin diuretics ephedrine female hormones, like estrogens and control pills isoniazid ketoconazole NSAIDS, medicines for pain and inflammation, like ibuprofen or naproxen phenytoin rifampin toxoids vaccines warfarin What if I miss a dose? If you miss a dose, take it as soon as you can. If it is almost time for your next dose, talk to your doctor or health manager long term care. You may need to miss a dose or take an extra dose. Do not take double or extra doses without advice. Where should I keep my medicine? Keep out of the reach of children. Store at room temperature between 15 and 30 degrees C (59 and 86 degrees F). Protect from light. Keep container tightly closed. Throw away any unused medicine after the expiration date. What should I tell my health care provider before I take this medicine? They need to know if you have any of these conditions: Metaline's syndrome diabetes glaucoma heart disease high blood pressure infection (especially a virus infection such as chickenpox, cold sores, or herpes) kidney disease liver disease mental illness myasthenia gravis osteoporosis seizures stomach or intestine problems thyroid disease an unusual or allergic reaction to lactose, prednisone, other medicines, foods, dyes, or preservatives or trying to get breast-feeding What should I watch for while using this medicine? Visit your doctor or health manager long term care for regular checks on your progress. If you are taking this medicine over a prolonged period, carry an identification card with your name and address, the type and dose of your medicine, and your doctor's name and address. This medicine may increase your risk of getting an infection. Tell your doctor or health manager long term care if you are around anyone with measles or chickenpox, or if you develop sores or blisters that do not heal properly. If you are going to have surgery, tell your doctor or health manager long term care that you have taken this medicine within the last twelve months. Ask your doctor or health manager long term care about your diet. You may need to lower the amount of salt you eat. This medicine may affect blood sugar levels. If you have diabetes, check with your doctor or health manager long term care before you change your diet or the dose of your diabetic medicine. You have been given the following additional information: Asthma, Acute (Adult) Influenza (Adult) Oseltamivir Phosphate Oral capsule Prednisone Oral tablet (Electronically signed by Georges Arenas MD 02/25/2016 19:24)
--- NOTE | 2016-02-25 19:24 | ED MED RECONCILIATION SUMMARY ---
Patient: FRED YU Medication Reconciliation Report [facility] VisitID: [id number] [place] [address] 45y, F Registration Date/Time: 02/25/2016 Weight: 140 kg Height/Length: 71 in. BMI: 43.1 ALLERGIES: Percocet The patient's Home Medications are listed below: CONTINUE TAKING THE FOLLOWING MEDICATIONS: Albuterol Sulfate HFA Inhalation 2 puffs, 6 x day, asthma Morphine Sulfate (Concentrate) Oral 15mg, BID Morphine Sulfate CR Oral 30mg, TID ProAir HFA Inhalation 2 puffs, every 4 hrs, prn The source(s) of the original Home Medication information: patient The following Medications were given to the patient in the Emergency Department: Albuterol [Neb Tx] Neb TX 1 unit dose, administered: 02/25/2016 1:01:00 PM SOLU-MEDROL [IVP] IVP 125 mg, administered: 02/25/2016 1:37:00 PM IV NS IV Fluids bolus 500 mL over 30 minute(s), then 125 mL/hr, administered: 02/25/2016 3:35:00 PM Tamiflu [PO] PO 75 mg, administered: 02/25/2016 5:13:00 PM The following Medications were prescribed to the patient: Tamiflu 75 mg: take 1 capsule orally every 12 hours for 5 days. No refill. Substitution is permissible.(9 pills) -- Georges Arenas MD Prednisone 10 mg tablets: take 4 orally every day for 5 days, then 2 every day for 3 days, then 1 every day for 2 days. Dispense twenty-eight (28). No refills. -- Georges Arenas MD
--- NOTE | 2016-02-25 19:24 | ED DISCHARGE INSTRUCTIONS ---
Patient: FRED YU General Instructions [facility] VisitID: [id number] [place] [address] 45y, F Registration Date/Time: 02/25/2016 Asthma. Influenza type B. INSTRUCTIONS Warnings: Further evaluation is necessary. GENERAL WARNINGS: Return or contact your physician immediately if your condition worsens or changes unexpectedly, if not improving as expected, or if other problems arise. Your Current Medications: CONTINUE TAKING THE FOLLOWING MEDICATIONS: Albuterol Sulfate HFA Inhalation : 2 puffs 6 x day, asthma. Morphine Sulfate (Concentrate) Oral : 15mg BID. Morphine Sulfate CR Oral : 30mg TID. ProAir HFA Inhalation : 2 puffs every 4 hrs, prn. Prescription Medications: Tamiflu 75 mg: take 1 capsule orally every 12 hours for 5 days. No refill. Substitution is permissible. (9 pills) Prednisone 10 mg tablets: take 4 orally every day for 5 days, then 2 every day for 3 days, then 1 every day for 2 days. Dispense twenty-eight (28). No refills. Follow-up: Follow up with your doctor in two days. Call for an appointment. Understanding of the discharge instructions verbalized by patient. ADDITIONAL INFORMATION Asthma [Adult] Asthma is a disease where the small air passages within the lung go into spasm and restrict the flow of air. Inflammation and swelling of the airways cause further restriction. During an acute asthma attack, these factors cause difficulty breathing, wheezing, cough and chest tightness. An asthma attack can be triggered by many things. Common triggers include the common cold, bronchitis, pneumonia, irritants such as smoke or pullutants in the air, emotional upset and heavy exercise. Inmany adults with asthma, allergies todust, mold, pollen and animal dander can cause an asthma attack. Skipping doses of daily asthma medicine can also bring on an asthma attack. Asthma can be controlled with proper medicines and decreased exposure to known allergens. Home Care: Take prescribed medicine exactly at the times advised. If you have a hand-held inhaler or aerosol breathing medicine, do not use it more than once every four hours, unless told to do so. (If you need this medicine more than every four hours, you may need to return to the Emergency Room.) If prescribed an antibiotic or prednisone, take all of the medicine even if you are feeling better after a few days. Do not smoke. Avoid being exposed to the smoke of others. Some persons with asthma have worsening of their symptoms when they take aspirin and non-steroidal medicines like ibuprofen (Motrin, Advil) and naproxen (Aleve, Naprosyn). Talk to your doctor if you think this may apply to you. Acetaminophen (Tylenol)should be safe to use. Follow Up with your doctor, or as advised by our staff. Always bring all of your current medicines with you for your doctor to see. If you do not already have one, talk to your doctor about developing a personalized "Asthma Action Plan." [NOTE: A pneumococcal vaccine and yearly flu shot (every fall) are recommended. Ask your doctor about this.] Get Prompt Medical Attention if any of the following occur: Increased wheezing or shortness of breath Need to use your inhalers more often than usual without relief Fever of 100.4F (38C) or higher, or as directed by your healthcare provider Coughing up lots of dark-colored or bloody sputum (mucus) Chest pain with each breath You do not start to improve within 24 hours Call 911 If Any Of The Following Occur : Trouble walking or talking because of shortness of breath If you use a peak flow meter andyou are still in the red zone (less than 50 percent) 15 minutes after using inhaler medication Lips or fingernails turning singer or blue Influenza (Adult) Influenza, also called the flu, is a viral illness that affects the air passages of the lungs. It differs from the common cold. It is highly contagious. It may be spread through the air by coughing and sneezing or by direct contact (touching the sick person and then touching your own eyes, nose or mouth). Illness starts 1-3 days after exposure and lasts for 1-2 weeks. Antibiotics are usually not needed unless a complication appears (ear or sinus infection or pneumonia). Symptoms may be mild or severe and can include extreme tiredness (wanting to stay in bed all day), chills, fevers, muscle aching, soreness with eye movement, headache, and a dry, hacking cough. Home Care: Avoid exposure to cigarette smoke (yours or others). Tylenol or ibuprofen (Advil) will help fever, muscle aching, and headache. To avoid risk of liver injury, aspirin should not be used in children and teenagers under 18 with this illness. Nausea and loss of appetite are common. A light diet is recommended. Avoid dehydration by drinking 6-8 glasses of fluids per day (water, sport drinks like Gatorade, soft drinks without caffeine, juices, tea, soup, etc.). Extra fluids will also help loosen secretions in the nose and lungs. Dqzu-yyo-bpejldu cold medicines will not shorten the duration of the illness but may be helpful for the following symptoms: cough (Robitussin DM); sore throat (Chloraseptic lozenges or spray); nasal and sinus congestion (Actifed or Sudafed). [NOTE: Do not use decongestants if you have high blood pressure.] Stay home until your fever has been gone for at least 24 hours (without the use of fever-reducing medications such as ibuprofen). Follow Up with your doctor or as directed by our staff if you are not improving over the next week. Note: If you are age 65 or older, or if you have chronic asthma or COPD, we recommend a pneumococcal vaccinationevery five years. All adults shouldreceive a yearly influenza vaccination every . Ask your doctor about this. Get Prompt Medical Attention if any of the following occur: Cough with lots of colored sputum (mucus) or blood in your sputum Chest pain, shortness of breath, wheezing, or difficulty breathing Severe headache, face, neck or ear pain New rash Fever of 100.4F (38C) oral or higher, not better with fever medication Confusion, behavior change or seizure Severe weakness or dizziness Oseltamivir Phosphate Oral capsule What is this medicine? OSELTAMIVIR (os el MALONE i vir) is an antiviral medicine. It is used to prevent and to treat some kinds of influenza or the flu. It will not work for colds or other viral infections. How should I use this medicine? Take this medicine by mouth with a glass of water. Follow the directions on the prescription label. Start this medicine at the first sign of flu symptoms. You can take it with or without food. If it upsets your stomach, take it with food. Take your medicine at regular intervals. Do not take your medicine more often than directed. Take all of your medicine as directed even if you think you are better. Do not skip doses or stop your medicine early. Talk to your sheet metal pattern cutter regarding the use of this medicine in children. While this drug may be prescribed for children as young as 14 days for selected conditions, precautions do apply. What side effects may I notice from receiving this medicine? Side effects that you should report to your doctor or health career counselor as soon as possible: allergic reactions like skin rash, itching or hives, swelling of the face, lips, or tongue anxiety, confusion, unusual behavior breathing problems hallucination, loss of contact with reality redness, blistering, peeling or loosening of the skin, including inside the mouth seizures Side effects that usually do not require medical attention (report to your doctor or health career counselor if they continue or are bothersome): cough diarrhea dizziness headache nausea, vomiting stomach pain What may interact with this medicine? Interactions are not expected. What if I miss a dose? If you miss a dose, take it as soon as you remember. If it is almost time for your next dose (within 2 hours), take only that dose. Do not take double or extra doses. Where should I keep my medicine? Keep out of the reach of children. Store at room temperature between 15 and 30 degrees C (59 and 86 degrees F). Throw away any unused medicine after the expiration date. What should I tell my health care provider before I take this medicine? They need to know if you have any of the following conditions: heart disease immune system problems kidney disease liver disease lung disease an unusual or allergic reaction to oseltamivir, other medicines, foods, dyes, or preservatives or trying to get breast-feeding What should I watch for while using this medicine? Visit your doctor or health career counselor for regular check ups. Tell your doctor if your symptoms do not start to get better or if they get worse. If you have the flu, you may be at an increased risk of developing seizures, confusion, or abnormal behavior. This occurs early in the illness, and more frequently in children and teens. These events are not common, but may result in accidental injury to the patient. Families and caregivers of patients should watch for signs of unusual behavior and contact a doctor or health career counselor right away if the patient shows signs of unusual behavior. This medicine is not a substitute for the flu shot. Talk to your doctor each year about an annual flu shot. Prednisone Oral tablet What is this medicine? PREDNISONE (PRED ni sone) is a corticosteroid. It is commonly used to treat inflammation of the skin, joints, lungs, and other organs. Common conditions treated include asthma, allergies, and arthritis. It is also used for other conditions, such as blood disorders and diseases of the adrenal glands. How should I use this medicine? Take this medicine by mouth with a glass of water. Follow the directions on the prescription label. Take this medicine with food. If you are taking this medicine once a day, take it in the morning. Do not take more medicine than you are told to take. Do not suddenly stop taking your medicine because you may develop a severe reaction. Your doctor will tell you how much medicine to take. If your doctor wants you to stop the medicine, the dose may be slowly lowered over time to avoid any side effects. Talk to your sheet metal pattern cutter regarding the use of this medicine in children. Special care may be needed. What side effects may I notice from receiving this medicine? Side effects that you should report to your doctor or health career counselor as soon as possible: allergic reactions like skin rash, itching or hives, swelling of the face, lips, or tongue changes in emotions or moods changes in vision depressed mood eye pain fever or chills, cough, sore throat, pain or difficulty passing urine increased thirst swelling of ankles, feet Side effects that usually do not require medical attention (report to your doctor or health career counselor if they continue or are bothersome): confusion, excitement, restlessness headache nausea, vomiting skin problems, acne, thin and shiny skin trouble sleeping weight gain What may interact with this medicine? Do not take this medicine with any of the following medications: metyrapone mifepristone This medicine may also interact with the following medications: aminoglutethimide amphotericin B aspirin and aspirin-like medicines barbiturates certain medicines for diabetes, like glipizide or glyburide cholestyramine cholinesterase inhibitors cyclosporine digoxin diuretics ephedrine female hormones, like estrogens and control pills isoniazid ketoconazole NSAIDS, medicines for pain and inflammation, like ibuprofen or naproxen phenytoin rifampin toxoids vaccines warfarin What if I miss a dose? If you miss a dose, take it as soon as you can. If it is almost time for your next dose, talk to your doctor or health career counselor. You may need to miss a dose or take an extra dose. Do not take double or extra doses without advice. Where should I keep my medicine? Keep out of the reach of children. Store at room temperature between 15 and 30 degrees C (59 and 86 degrees F). Protect from light. Keep container tightly closed. Throw away any unused medicine after the expiration date. What should I tell my health care provider before I take this medicine? They need to know if you have any of these conditions: Mohnton's syndrome diabetes glaucoma heart disease high blood pressure infection (especially a virus infection such as chickenpox, cold sores, or herpes) kidney disease liver disease mental illness myasthenia gravis osteoporosis seizures stomach or intestine problems thyroid disease an unusual or allergic reaction to lactose, prednisone, other medicines, foods, dyes, or preservatives or trying to get breast-feeding What should I watch for while using this medicine? Visit your doctor or health career counselor for regular checks on your progress. If you are taking this medicine over a prolonged period, carry an identification card with your name and address, the type and dose of your medicine, and your doctor's name and address. This medicine may increase your risk of getting an infection. Tell your doctor or health career counselor if you are around anyone with measles or chickenpox, or if you develop sores or blisters that do not heal properly. If you are going to have surgery, tell your doctor or health career counselor that you have taken this medicine within the last twelve months. Ask your doctor or health career counselor about your diet. You may need to lower the amount of salt you eat. This medicine may affect blood sugar levels. If you have diabetes, check with your doctor or health career counselor before you change your diet or the dose of your diabetic medicine. You have been given the following additional information: Asthma, Acute (Adult) Influenza (Adult) Oseltamivir Phosphate Oral capsule Prednisone Oral tablet (Electronically signed by Georges Arenas MD 02/25/2016 19:24)
== END 2016-02-25 17:42 | disposition home or self-care (01) ==
LOC: ED SRH 12:44
DX: J11.1 Influenza due to unidentified influenza virus with other respiratory manifestations (principal); J45.909 Unspecified asthma, uncomplicated; Z88.5 Allergy status to narcotic agent
CPT/HCPCS: 90100; 91400; 91556; 93070; 94001; 94060; 95059

== ENCOUNTER 2016-04-12 17:14 | Inpatient (IN) | payer OTHER ==
[~2016-04-12] VITALS: Ht 177.8 cm; Wt 164.3 kg
--- NOTE | 2016-04-12 18:53 | ED ORDER SUMMARY ---
..... Patient: FRED YU OrderSheet [facility] VisitID: [id number] [place] [address] 45y, F Registration Date/Time: 04/12/2016 ORDER SHEET Weight: 148.7 kg (stated) Allergies: Percocet GENERAL ORDERS: Chest 2V Urgent (17:57 04/12/2016 Toshia CARLIN) (18:14 RCollier R.N.) Chest 1V Urgent (19:50 04/12/2016 Toshia CARLIN) (19:56 ALawrence ER Tech1) CBC w Diff Urgent (19:50 04/12/2016 Toshia CARLIN) (Ack 19:55 ALawrence ER Tech1) (19:55 ALawrence ER Tech1) CMP Urgent (19:50 04/12/2016 Toshia CARLIN) (Ack 19:55 ALawrence ER Tech1) (19:55 ALawrence ER Tech1) Chest 1V Urgent (20:54 04/12/2016 ALawrence ER Tech1 verbal order read back to Toshia CARLIN) (20:58 ALawrence ER Tech1) Chest 1V Urgent (21:05 04/12/2016 Toshia CARLIN) (21:10 RCollier R.N.) MEDICATION ORDERS: Toradol IM 60 mg (NOW) (17:58 04/12/2016 Toshia CARLIN) (Ack 18:14 Ronni R.N.) (Cancelled: Other18:17 Toshia CARLIN) Dilaudid IM 1 mg (HIGH ALERT MEDICATION, NOW) (17:58 04/12/2016 Toshia CARLIN) (Ack 18:14 Ronni R.N.) (Cancelled: Other18:17 Toshia CARLIN) IV FLUIDS: Toradol IV 30 mg (NOW) (18:18 04/12/2016 Toshia CARLIN) (18:28 SKINNYollier R.N.) Dilaudid IV 1 mg (HIGH ALERT MEDICATION, NOW) (18:18 04/12/2016 Toshia CARLIN) (18:28 SKINNYollier R.N.) IV NS : initial bolus 1000 mL (1000 mL/hr), then none - (NOW) (19:50 04/12/2016 Toshia CARLIN) (Ack 19:52 Ronni R.N.) (20:02 RCollier R.N.) Dilaudid IV 1 mg (HIGH ALERT MEDICATION, NOW) (19:50 04/12/2016 Toshia CARLIN) (Ack 19:52 Ronni R.N.) (20:03 Ronni R.N.) Zofran IV 4 mg (NOW) (20:03 04/12/2016 Ronni Bazan.N. per protocol) (20:04 Ronni R.N.) ORDER SHEET NOTES: Reason for Study: Chest Tube [Electronically signed by Terri Mcclain R.N. (21:40 04/12/2016)] [Electronically signed by Jessica Hogan MD (15:46 04/16/2016)] [Electronically locked/signed by Terri Mcclain R.N. (21:40 04/12/2016)]
--- NOTE | 2016-04-12 18:53 | ED CLINICAL REPORT ---
Clinical Report - Physicians/Mid Levels [facility] [address] [place] [address] 04/12/2016 17:15 Patient: FRED YU Time Seen: 17:31. Arrived- By private vehicle. Historian- patient. HISTORY OF PRESENT ILLNESS Chief Complaint: DYSPNEA and HISTORY OF ASTHMA. This started last night and is still present. The dyspnea is described as moderate. She has had dyspnea at rest. No cough, sputum production, orthopnea or chest discomfort. (PT states she had shoulder surgery yesterday in [place]. Sx began to develop overnight, but have gotten quite a bit worse now.). She complains of moderate right-sided chest pain, currently moderate. See nurses notes for current asthma threapy. Asthma triggers: allergies, infections and irritants. Takes asthma medications. Similar symptoms previously: Many times. Recent medical care: The patient was seen recently at another facility. ( PT had shoulder surgery yesterday.). REVIEW OF SYSTEMS No sore throat, nasal discharge, sinus drainage, fever or chills. No muscle aches, headache, palpitations, calf pain or nausea. No abdominal pain, diarrhea, black stools, difficulty with urination or excessive urination. No skin rash, enlarged lymph nodes, pedal edema, vomiting or bloody stools. No joint pain. Denies current . All systems otherwise negative, except as recorded above. PAST HISTORY Problems: Influenza. Anxiety Reaction. LNMP - Last Normal Menstrual Period. Tetanus Status. Back Injury. Shoulder Injury. Asthma. Immunizations. Additional Surgeries: Knee Surgery. Shoulder Surgery. Tonsillectomy. Tubal Ligation. Medications: Morphine Sulfate Oral (Tablet 15 mg) 1-2 tablets, 5 xdaily, chronic back/shoulder/knee pain. Symbicort Inhalation. Flonase Nasal. Albuterol Sulfate Inhalation. Allergies: Percocet.(nausea). SOCIAL HISTORY Former smoker. No alcohol use or drug use. ADDITIONAL NOTES The nursing notes have been reviewed. PHYSICAL EXAM Vital Signs: 04/12/2016 17:19 BP: 106/79. HR: 101. RR: 24. O2 saturation: 94%. Temp: 97.6 F. Pain level now: 08/20. Have been reviewed. Appearance: Alert. Patient in mild distress. Distress appears respiratory. Eyes: Pupils equal, round and reactive to light. Eyes normal inspection. ENT: Nose normal. Neck: Normal inspection. Neck supple. CVS: Normal heart rate and rhythm. Heart sounds normal. Pulses normal. Respiratory: Mild respiratory distress (PT speaks in full sentences, but is splinting and grunting when she breathes.). Mildly decreased air movement over the lower third of both lung riley. No prolonged expiration or wheezes. Abdomen: Soft and nontender. Obese. Back: Normal inspection. Skin: Skin warm and dry. Normal skin color. No rash. Normal skin turgor. Extremities: No lower extremity edema. Neuro: Oriented X 3. No motor deficit. No sensory deficit. LABS, X-RAYS, AND EKG Rhythm Strip #1: Time: (1921). Rate= 103. Sinus tachycardia. Regular rhythm. Narrow QRS complexes. No ectopy. Conduction normal. Normal ST segments and T waves. The study was interpreted by me. Chest X-ray: Large right-sided pneumothorax. No right-sided tension pneumothorax. Normal heart size. Mediastinum normal. Great vessels normal. Soft tissues normal. No infiltrate. No fracture. No bony lesion present. Views: AP (portable). Technique: good. The X-rays were independently viewed by me, interpreted by the radiologist and contemporaneously by me and discussed with the radiologist. Prior films were not available for comparison. Chest X-ray #2: (Interval placement of chest tube; reinflation of R lung). Views: AP (portable). Technique: good. The X-rays were independently viewed by me, interpreted by the radiologist and contemporaneously by me and discussed with the radiologist. A comparison with prior films reveals that the findings are improved. Chest X-ray #3: (Interval replacement of chest tube; reinflation of R lung). Views: AP (portable). Technique: good. The X-rays were independently viewed by me, interpreted by the radiologist and contemporaneously by me and discussed with the radiologist. No worsened findings. Laboratory Tests: CBC w Diff: (KALI: 04/12/2016 18:05) ( MsgRcvd 04/12/2016 20:01) Final results Test Result Flag Units (Reference) WHITE BLOOD COUNT 9.5 K/uL (4.5-11.5) RED BLOOD COUNT 4.38 M/uL (4.00-5.20) HEMOGLOBIN 12.6 gm/dL (12.0-16.0) HEMATOCRIT 38.3 % (36.0-46.0) MEAN CELL VOLUME 88 fL (80-100) MEAN CORPUSCULAR HGB 29 pg (26-34) MEAN CORPUSCULAR HGB CONC 33 g/dL (31-37) RED CELL DISTRIBUTION WIDTH 13.2 % (11.6-14.8) PLATELET COUNT 160 K/uL (150-400) NEUTROPHIL % 64.8 % (50-75) LYMPH % 26.2 % (25-40) MONO % 8.1 % (3-14) EOSINOPHIL % 0.8 % (0-4) BASOPHIL % 0.1 % (0-2) CMP: (KALI: 04/12/2016 18:05) ( MsgRcvd 04/12/2016 20:10) Final results Test Result Flag Units (Reference) GLUCOSE 119 H mg/dL (70-110) BUN 14 mg/dL (7-18) CREATININE 1.0 mg/dL (0.6-1.3) Estimated GFR >60 mL/min Estimated GFR- >60 mL/min Note: Persistent reduction over 3 months in eGFR<60 mL/min/1.73 m2 defines CKD. Patients with eGFR values>=60 mL/min/1.73 m2 may also have CKD if evidence ofpersistent proteinuria. Additional information may be foundat [email or web address]. SODIUM 142 mmol/L (136-145) POTASSIUM 3.7 mmol/L (3.5-5.1) CHLORIDE 103 mmol/L (98-107) CARBON DIOXIDE 32 mmol/L (21-32) CALCIUM 8.6 mg/dL (8.5-10.1) TOTAL PROTEIN 6.7 g/dL (6.4-8.2) ALBUMIN 3.2 L g/dL (3.3-5.0) BILIRUBIN, TOTAL 0.4 mg/dL (0.0-1.0) ALKALINE PHOSPHATASE 80 U/L (46-116) AST (SGOT) 24 U/L (15-37) ALT (SGPT) 23 U/L (12-78) . Pulse Oximetry: 04/12/2016 17:19 O2 saturation: 94%. (FIO2 - room air). Interpretation: normal. PROGRESS AND PROCEDURES Chest Tube Insertion: Risks, benefits and alternatives were discussed. Consent was obtained from patient. The patient was placed on a monitor and oxygen. The procedure was performed with the patient's head elevated. IV analgesia was given. A mini catheter was used. The tube was placed anteriorly in the 2nd intercostal space on the right side. Sterile technique was used. The area was cleansed with chlorhexidine. Local lidocaine anesthesia was used. The tube was inserted and directed superiorly. The tube was secured with nylon sutures. An occlusive dressing was applied. The tube was attached to a drainage system with a flutter valve. Returns of air were noted from the chest tube. The patient was clinically improved following the procedure. Post-procedure X-ray was improved. ( The initial catheter placement resulted in good air return and some degree of reinflation of the lung, but catheter was noted to have angled down. Pt was having significant discomfort with inspiration, and incremental retraction of the tube did not mitigate this. Therefore, I did remove the existing catheter and place another one at the same site, but with more superior angulation. I had the pt take deep breaths once the catheter was in, and catheter was secured at the deepest position that did not cause pain. Repeat x-ray showed reinflation of the lung, but downward angulation of the catheter again. However, bubbles were still being produced in the water seal, and pt was comfortable, so I opted to leave the tube as is.). Course of Care: I worked the pt up for her sx, and gave the pt doses of Dilaudid, Toradol, and Zofran. CXR showed a large pneumothorax on the R side. Pt was already on supplemental O2. I did d/w pt that she would need a chest tube for this. However, because of her very recent shoulder surgery and inability to abduct or raise her arm in any way, I had to use an anterior approach with a small-gauge catheter. No pigtail catheters were available, so a 6-inch, straight cath was used instead. Pt tolerated the procedure well. She was improved overall. I did inform her of her need for admission and observation. Critical care performed (45 minutes). Time is exclusive of separately billable procedures. Time includes: direct patient care, patient reassessment, coordination of patient care, interpretation of data (laboratory data, pulse oximetry, chest xrays and cardiac output measurements), review of patient's medical records, medical consultation and documentation of patient care- see progress notes. Procedures excluded from critical care time: chest tube placement- see progress notes. The patient required critical care due to the acute impairment of vital organ systems (respiratory) and a high probability of imminent and life threatening deterioration. Multiple emergent and urgent interventions were required to prevent sudden life threatening deterioration. Discussed case with on-call health care provider, (José). Reviewed test results and need for additional work-up. Agreed upon treatment plan and decision to admit. Health care provider will see patient in hospital. Patient and family counseled in person several times regarding the patient's stable but serious condition, test results, diagnosis and need for admission. Concerns were addressed. Old medical records reviewed. Disposition: Admitted to Acute Care. Condition: stable and serious. CLINICAL IMPRESSION Right pneumothorax with respiratory distress. No tension pneumothorax. (Electronically signed by Jessica Hogan MD 04/16/2016 15:46)
--- NOTE | 2016-04-12 18:53 | ED NURSING NOTES ---
Clinical Report - Nurses [facility] [address] [place] [address] 04/12/2016 17:15 [id number] Triage time 17:19. Acuity: LEVEL 3. Chief Complaint: SHORTNESS OF BREATH and DIFFICULTY BREATHING. Alert. --17:28 Terri Mcclain R.N. 17:19 04/12/16. BP: 106/79. HR: 101. RR: 24. O2 saturation: 94% on room air. Temp: 97.6 F (oral). Pain level now: 08/20. --17:28 Terri Mcclain R.N. Weight: 148.7 kg stated. Height/Length: 70 inches Per Patient. BMI: 47. --17:23 Terri Mcclain R.N. Medications Albuterol Sulfate Inhalation. --17:21 Terri Mcclain R.N. Flonase Nasal. --17:21 Terri Mcclain R.N. Symbicort Inhalation. --17:22 Terri Mcclain R.N. Morphine Sulfate Oral (Tablet 15 mg) 1-2 tablets, 5 xdaily, chronic back/shoulder/knee pain. --17:23 Terri Mcclain R.N. Allergies Percocet.(nausea) --17:23 Terri Mcclain R.N. History Arrived by private vehicle. Historian: patient. Accompanied by family. Primary physician (Zena Willoughby). ( pt had shoulder surgery yesterday.). Symptoms still present (at about 0200 (getting worse today)). 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 PAST MEDICAL HX: Immunizations: up-to-date. Last normal menstrual period- 1 years ago. SOCIAL HX: Smoker- current status unknown. No alcohol use or drug use. NUTRITIONAL RISK ASSESSMENT: The nutritional risk assessment revealed no deficiencies. FUNCTIONAL ASSESSMENT: Functional assessment: no impairments noted. --17:28 Terri Mcclain R.N. ADDITIONAL SURGERIES: Knee Surgery. Shoulder Surgery. Tonsillectomy. Tubal Ligation. --17:25 Terri Mcclain R.N. Interventions ID band on patient. To treatment room. --17:28 Terri Mcclain R.N. PHYSICAL ASSESSMENT To room via wheelchair. Patient gowned. GENERAL / NEURO / PSYCH: Alert. Oriented X 4. Appears anxious. HEENT: Mucous membranes are pink. RESPIRATORY: The patient can speak a few words at a time. CVS: Capillary refill less than 2 seconds. SKIN: Skin is warm and dry. --17:28 Terri Mcclain R.N. NURSING PROGRESS NOTES Head of bed elevated. Two patient identifiers checked. Call light placed in reach. Side rails up x 1. Bed placed in lowest position. Brakes of bed on. --17:28 Terri Mcclain R.N. Patient ready for evaluation- chart flagged. --17: Terri Mcclain R.N. ( RT arrives at bedside for evaluation.). --17:29 Terri Mcclain R.N. 18:06 04/12/2016 Two (2) unsuccessful IV access attempts including the left antecubital space. Applied bandage and manual pressure. --18:11 Terri Mcclain R.N. 18:10 04/12/2016 Site #1 started via IV in the left upper arm with an 20g angiocath, with aseptic technique and good blood return; one attempt. Blood drawn: rainbow set. Labeled in the presence of the patient and sent to the lab. Saline lock flushed with 10 mL saline (IV Ultrasound device used to aid in insertion.). --18:13 Terri Mcclain R.N. 18:11. Patient transported to radiology by stretcher with tech. --18:13 Terri Mcclain R.N. 18:22 04/12/2016 Toradol IVP 30 mg given over 30 second(s) via site #1. Allergies verified and confirmed 5 rights. IV patency established. IV site checked: no pain, redness, or swelling. IV flushed thoroughly pre- and post-medication administration. IVP given by RN. --18:28 Terri Mcclain R.N. 18:23 04/12/2016 Dilaudid (HYDROmorphone HCl PF) IVP 1 mg given over 1 minute(s) via site #1. Allergies verified, confirmed 5 rights and sedative warning given to the patient. IV patency established. IV site checked: no pain, redness, or swelling. IV flushed thoroughly pre- and post-medication administration. IVP given by RN. --18:28 Terri Mcclain R.N. 18:29 04/12/16. BP: 118/84 taken while sitting. HR: 102. RR: 17. O2 saturation: 92% on room air. Pain level now: 08/20. --18:29 Terri Mcclain R.N. CHEST TUBE: Chest tube insertion performed by ED physician. Assisted by one nurse and tech. Preparation: consent was obtained per patient, patient was placed on pulse oximeter, O2 administered, IV established, placed on court recording monitor and NIBP, suction at bedside, chest tube tray at bedside and patient in sitting position. --19:17 Terri Mcclain R.N. 19:18 04/12/16. BP: 128/94. HR: 97. RR: 17. O2 saturation: 95% on nasal cannula at 2 liters/minute. Pain level now: 08/20. --19:19 Terri Mcclain R.N. 19:24-Chest tube proceedure start time. --19:24 Terri Mcclain R.N. CHEST TUBE: Procedure: placed anteriorly to the right chest. Attached to a multi-chamber system. (8fr pneumothorax Chest drain valve used due to pt condition of recent shoulder surgery and inability to position pt for traditional chest tube.). Initial tube return: air. --19:39 Terri Mcclain R.N. 19:39 04/12/16. BP: 120/78. HR: 92. RR: 16. O2 saturation: 96% on nasal cannula at 2 liters/minute. --19:40 Terri Mcclain R.N. CHEST TUBE: Procedure. Water seal chamber fluctuates with respirations and has initial bubbling. --19:44 Terri Mcclain R.N. 20:00 04/12/2016 Started bag #1 1000 mL IV Fluids IV NS (Saline); at 1000 mL/hr over 1 hour(s) via site #1 via IV pump. Allergies verified and confirmed 5 rights. IV patency established. IV site checked: no pain, redness, or swelling. IV flushed thoroughly pre- and post-medication administration. --20:02 Terri Mcclain R.N. 20:01 04/12/2016 Dilaudid (HYDROmorphone HCl PF) IVP 1 mg given over 30 second(s) via site #1. Sedative warning given to the patient. IV patency established. IV site checked: no pain, redness, or swelling. IV flushed thoroughly pre- and post-medication administration. IVP given by RN. --20:03 Terri Mcclain R.N. 20:02 04/12/2016 Dilaudid IVP Response. Adverse reactions reported including nausea. --20:03 Terri Mcclain R.N. 20:03 04/12/2016 Zofran (Ondansetron HCl) IVP 4 mg given over 30 second(s) via site #1. Allergies verified and confirmed 5 rights. IV patency established. IV site checked: no pain, redness, or swelling. IV flushed thoroughly pre- and post-medication administration. IVP given by RN. --20:04 Terri Mcclain R.N. 20:02. Portable chest x-ray performed and shown to the ED physician. --20:06 Terri Mcclain R.N. EDMD pulls chest drainage valve out slightly for better placement. --20:07 Terri Mcclain R.N. Telemetry strip posted to chart. --20:32 McQuoid, Sara, ER Tech1 ( pt continues to report pain. EDMD will pull Chest drainage valve and reinsert another at different angle.). --20:36 Terri Mcclain R.N. 20:36 04/12/16. BP: 123/86. HR: 95. RR: 16. O2 saturation: 94% on nasal cannula at 4 liters/minute. End tidal CO2: 36 mmHg. --20:36 Mcclain, Terri, R.N. SECOND INSERTION. CHEST TUBE: Chest tube insertion performed by ED physician. Assisted by one nurse and tech. Preparation: consent was obtained per patient, patient was placed on pulse oximeter, O2 administered, IV established, placed on court recording monitor and NIBP, suction at bedside, chest tube tray at bedside and patient in sitting position. Procedure: placed anteriorly to the right chest. Tube and connections secured, attached to a multi-chamber system and suction set at 20cm H2O. (8fr pneumothorax valve used.). Water seal chamber fluctuates with respirations and has initial bubbling. Initial tube return: air. Post procedure: the patient was clinically improved. CXR interpreted per physician revealed improvement and good chest tube position. --20:59 Terri Mcclain R.N. DISPOSITION / DISCHARGE 21:06 04/12/16. BP: 115/72. HR: 97. RR: 16. O2 saturation: 95% on nasal cannula at 2 liters/minute. Srinivasan-Willis pain scale: 2/10. --21:07 Terri Mcclain R.N. Admitted to Acute Care. Report was given to a nurse via a phone call. Report included patient's care, treatment, medications, reviewed medication reconcilliation, and condition (including any recent changes or anticipated changes). All questions were answered. Report was acknowledged. --21:08 Terri Mcclain R.N. Transported via stretcher by nurse with IV and O2. Patient's personal items include, purse, clothing; items were placed in belongings bag and transported with the patient. Collection of belongings was witnessed by 1 nurse. --21:39 Terri Mcclain R.N. 21:00 04/12/2016 IV Fluids IV NS Discontinued: bag #1 completed. Total amount infused: 1000 mL. IV patency established. IV site checked: no pain, redness, or swelling. IV flushed thoroughly. --21:40 Terri Mcclain R.N. 21:35 04/12/2016 Site #[address] upon admission. Flushed with 10 mL saline; flushes easily. --21:40 Terri Mcclain R.N. Locked/Released at 04/12/2016 21:40 by Terri Mcclain R.N.
--- NOTE | 2016-04-12 18:53 | ED ORDER SUMMARY ---
..... Patient: FRED YU OrderSheet [facility] VisitID: [id number] [place] [address] 45y, F Registration Date/Time: 04/12/2016 ORDER SHEET Weight: 148.7 kg (stated) Allergies: Percocet GENERAL ORDERS: Chest 2V Urgent (17:57 04/12/2016 Toshia CARLIN) (18:14 RCollier R.N.) Chest 1V Urgent (19:50 04/12/2016 Toshia CARLIN) (19:56 ALawrence ER Tech1) CBC w Diff Urgent (19:50 04/12/2016 Toshia CARLIN) (Ack 19:55 ALawrence ER Tech1) (19:55 ALawrence ER Tech1) CMP Urgent (19:50 04/12/2016 Toshia CARLIN) (Ack 19:55 ALawrence ER Tech1) (19:55 ALawrence ER Tech1) Chest 1V Urgent (20:54 04/12/2016 ALawrence ER Tech1 verbal order read back to Toshia CARLIN) (20:58 ALawrence ER Tech1) Chest 1V Urgent (21:05 04/12/2016 Toshia CARLIN) (21:10 RCollier R.N.) MEDICATION ORDERS: Toradol IM 60 mg (NOW) (17:58 04/12/2016 Toshia CARLIN) (Ack 18:14 Ronni R.N.) (Cancelled: Other18:17 Toshia CARLIN) Dilaudid IM 1 mg (HIGH ALERT MEDICATION, NOW) (17:58 04/12/2016 Toshia CARLIN) (Ack 18:14 Ronni R.N.) (Cancelled: Other18:17 Toshia CARLIN) IV FLUIDS: Toradol IV 30 mg (NOW) (18:18 04/12/2016 Toshia CARLIN) (18:28 SKINNYollier R.N.) Dilaudid IV 1 mg (HIGH ALERT MEDICATION, NOW) (18:18 04/12/2016 Toshia CARLIN) (18:28 SKINNYollier R.N.) IV NS : initial bolus 1000 mL (1000 mL/hr), then none - (NOW) (19:50 04/12/2016 Toshia CARLIN) (Ack 19:52 Ronni R.N.) (20:02 RCollier R.N.) Dilaudid IV 1 mg (HIGH ALERT MEDICATION, NOW) (19:50 04/12/2016 Toshia CARLIN) (Ack 19:52 Ronni R.N.) (20:03 Ronni R.N.) Zofran IV 4 mg (NOW) (20:03 04/12/2016 Ronni Bazan.N. per protocol) (20:04 Ronni R.N.) ORDER SHEET NOTES: Reason for Study: Chest Tube [Electronically signed by Terri Mcclain R.N. (21:40 04/12/2016)] [Electronically signed by Jessica Hogan MD (15:46 04/16/2016)] [Electronically locked/signed by Terri Mcclain R.N. (21:40 04/12/2016)]
--- NOTE | 2016-04-12 19:46 | DIAGNOSTIC IMAGING REPORT ---
PROCEDURE: XR CHEST 2 VIEW INDICATION: CHEST PAIN TECHNIQUE: PA and lateral view. COMPARISON: Chest x-ray 02/25/2016 FINDINGS: Large right pneumothorax and right middle lobe collapse. Small left basilar infiltrate. Cardiovascular structures are normal. Bony thorax is unremarkable. IMPRESSION: 1. Large right pneumothorax and right middle lobe collapse. 2. Small left basilar infiltrate.
--- NOTE | 2016-04-12 20:45 | DIAGNOSTIC IMAGING REPORT ---
PROCEDURE: XR CHEST 1 VIEW INDICATION: POST-CHEST TUBE PLACEMENT TECHNIQUE: Portable AP view 07:54 p.m. COMPARISON: Chest x-ray 04/12/2016 at 06:13 p.m. FINDINGS: Interval placement of a right chest tube with markedly improved small residual right pneumothorax. Resolving bibasilar atelectasis. Heart and mediastinum are normal. Thorax is normal. IMPRESSION: 1. Right chest tube in place with markedly improved small residual right pneumothorax 2. Improved bibasilar atelectasis
[2016-04-12 21:45] VITALS: BP 133/87
--- NOTE | 2016-04-12 21:56 | DIAGNOSTIC IMAGING REPORT ---
PROCEDURE: XR CHEST 1 VIEW INDICATION: CHEST TUBE, follow-up TECHNIQUE: Portable AP view 08:56 p.m. COMPARISON: Chest x-ray 04/12/2016 at 07:54 p.m. FINDINGS: Stable right chest tube and small right apical pneumothorax. Improving bibasilar atelectasis. Heart and mediastinum are normal. Left glenohumeral joint degenerative changes and calcific tendonitis. IMPRESSION: 1. Stable right chest tube and small right apical pneumothorax 2. Improving bibasilar atelectasis.
[2016-04-12] MEDS ORDERED: VENTOLIN HFA IN (23:16)
[2016-04-12] MEDS ORDERED: SYMBICORT1 AE1 IN (23:17)
[2016-04-12] MEDS ORDERED: FLONASE AL50 MCG/ACT IN (23:18)
[2016-04-12] MEDS ORDERED: VIVLODEX10 MG PO (23:21)
[2016-04-12] MEDS ORDERED: MORPHINE SULFAT15 M2 PO (23:23)
[2016-04-12] MEDS ORDERED: MORPHINE SULFAT30 M4 PO (23:24)
[2016-04-13 02:49] VITALS: BP 133/89
[2016-04-13 07:33] VITALS: BP 111/68
--- NOTE | 2016-04-13 08:15 | DIAGNOSTIC IMAGING REPORT ---
PROCEDURE: XR CHEST 1 VIEW INDICATION: CHEST TUBE TECHNIQUE: Portable AP view 07:49 a.m. COMPARISON: Chest x-ray 04/12/2016. FINDINGS: Small right chest tube in place. Progression of mild right apical pneumothorax. No change in the right medial basilar atelectasis/infiltrate. Left lung is clear. Heart and mediastinum are normal. Thorax is normal. IMPRESSION: 1. Small bore right chest tube in place with progression of mild right apical pneumothorax 2. No change in the medial right basilar atelectasis/infiltrate 3. Results discussed with Dr. Kumar
[2016-04-13 11:13] VITALS: BP 116/80
--- NOTE | 2016-04-13 12:36 | DIAGNOSTIC IMAGING REPORT ---
PROCEDURE: XR CHEST 1 VIEW INDICATION: CHEST TUBE FUNCTION CHECK TECHNIQUE: Portable AP view 11:39 a.m. COMPARISON: Chest 04/12 and 04/13/2016 FINDINGS: Small right chest tube in place. No change of mild right apical pneumothorax. No change in the right medial basilar atelectasis/infiltrate. Left lung is clear. Heart and mediastinum are normal. Thorax is normal. IMPRESSION: 1. Small bore right chest tube in place with no change of mild right apical pneumothorax 2. No change in the medial right basilar atelectasis/infiltrate
[2016-04-13 15:05] VITALS: BP 112/79
[2016-04-13 16:27] VITALS: BP 119/76
--- NOTE | 2016-04-13 17:04 | DIAGNOSTIC IMAGING REPORT ---
PROCEDURE: XR CHEST 1 VIEW INDICATION: CHEST TUBE PLACEMENT TECHNIQUE: Portable AP view 04:40 p.m. COMPARISON: None. FINDINGS: New chest tube on the right. Near complete resolution of the pneumothorax. IMPRESSION: 1. New chest tube. Near complete resolution of pneumothorax.
--- NOTE | 2016-04-13 20:44 | CONSULTATION REPORT ---
DATE OF CONSULTATION: 04/13/2016 CHIEF COMPLAINT: 1. Shortness of breath HISTORY OF PRESENT ILLNESS: The patient is a 45-year-old woman who came to the emergency room yesterday complaining of acute shortness of breath and trouble breathing. While in the emergency department, she was found to have a high-grade right-sided pneumothorax. She had a small bore chest tube placed last night in the emergency department. The patient underwent arthroscopic right shoulder reconstruction about 2 days ago at the [facility]. She reports no central lines or other punctures around the head and neck. She reports that when she went home she was already a little short of breath, but things got worse causing her to come to the emergency department. The patient has underlying COPD, but has never had a pneumothorax or bleb in the past. MEDICAL/SURGICAL HISTORY: Past medical history: Degenerative joint disease involving shoulder, back and knees. She has asthma. Past surgery: Knee surgery, shoulder surgery, tonsillectomy, and tubal ligation. Gynecologic history: She is G3, P3, all . MEDICATIONS: 1. Albuterol inhaler 2 puffs q.4 hours as needed for cough and wheezing. 2. Budesonide formoterol (Symbicort) 250 mg inhaler b.i.d. 3. Fluticasone nasal spray 50 mcg daily. 4. Meloxicam 10 mg p.o. daily. 5. Morphine sulfate ER 30 mg t.i.d. 6. Morphine sulfate regular 15 mg p.o. b.i.d. p.r.n. pain. ALLERGIES: 1. PERCOCET CAUSING NAUSEA. 2. ETHANOL FROM PURELL WIPES. 3. METHYL PARABEN. 4. OXYCODONE. 5. CHICKEN. 6. PEANUTS. SOCIAL HISTORY: FAMILY HISTORY: REVIEW OF SYSTEMS: A multipoint review of systems was obtained today covering at least 12 systems. She reports she has had no stool for about 3 days and feels constipated. She does not report any other additional pulmonary problems other than the original shortness of breath. There is no productive cough or hemoptysis. She reports no current problems with her urine, head, neck, sinuses, neurologic situation, hearing, sight. Her right arm is in a sling and she has some pain in the shoulder from her recent surgery. PHYSICAL EXAMINATION: VITAL SIGNS: Her most recent vital signs: Temperature 98.2, pulse of 101, respirations 18, blood pressure 112/79, O2 saturation is 93% with 3.5 oxygen flow by nasal cannula. GENERAL: The patient was alert and cooperative. Her mental status was normal. She responded appropriately to all questions. There are no lesions of the head or neck. HEENT: The ears and nose were externally normal. Eyes are equal. There is no icterus. NECK: Without palpable masses. There were no bruits. There was no thyromegaly. CHEST: Revealed absent breath sounds in the right apex and anterior chest. The left side had normal breath sounds. There is no shifting of the trachea. There was a small bore chest tube in place, but there was no fluctuation in the water trap. CARDIAC: There were no murmurs or gallops. The heart sounds were regular. ABDOMEN: Revealed no localized tenderness. No obvious masses or organomegaly. EXTREMITIES: The right shoulder was in a sling with 4 trocar site incisions with sutures and Xeroform gauze. These dressings were taken down, which is consistent with the instructions she had from her surgeon, and the wounds look fine without signs of active infection. SKIN: I carefully inspected her neck and chest region and there were no signs or recent punctures or central line placement attempts. She did have a small bore chest tube in place in the midclavicular line and around the second intercostal space. LAB/IMAGING: Laboratory tests: White count 9.5, hemoglobin, hematocrit 12.6 and 38. Electrolytes were all normal. Glucose slightly elevated at 119. Chest x-ray sequence was reviewed. Last night, she had a large right pneumothorax initially and a small left basilar infiltrate. The repeat x-ray showed a small bore chest tube in place with markedly improved pneumothorax with small residual right apical pneumothorax. Repeat x-ray this morning showed she continues to have a right apical pneumothorax. The repeat study midday showed that she still had the apical pneumothorax, the chest tube was no longer fluctuating or working at that point and attempts were made to get it to work with suctioning and this did not remediate the situation. IMPRESSION: 1. Right pneumothorax, possibly related in some way to surgery versus spontaneous pneumothorax, coinciding with surgery. PLAN: I have recommended that we pull out the nonfunctioning small bore tube and replace it with another one that is more inserted up into the apex to see if we can get pleural apposition and complete reexpansion of the lung. The patient was familiar with the procedure and I explained to her some of the risks of injuries to local structures or persistent air leaks and additional surgery required or perhaps a large bore tube. She appeared to understand and wishes to go ahead with the recommended small bore tube as described to her.
--- NOTE | 2016-04-13 20:48 | OPERATIVE REPORT ---
DATE OF SURGERY: 04/13/2016 SURGEON: Romain Kumar MD PREOPERATIVE DIAGNOSIS: 1. Right pneumothorax POSTOPERATIVE DIAGNOSIS: 1. Right pneumothorax PROCEDURE PERFORMED: 1. Right pneumothorax tube thoracostomy ANESTHESIA: Local. INDICATIONS: The patient is a 45-year-old woman with a right pneumothorax with dysfunction of a previous small bore tube. SURGICAL TECHNIQUE: The patient was treated at the bedside. The head of the bed was in an elevated position and the patient resting quite comfortably on pillows. The anterior chest area was prepped and draped after first removing the old nonfunctioning tube. A site about 2 cm caudad to the old chest tube site was selected and anesthetized with 1% Xylocaine. A puncture was made with a #11 blade and the 8-Slovenian arrow chest tube was inserted with its trocar and aimed toward the apex of the lung. The tube was fed in without resistance with good return of air. The tube was connected up to the Pleur-evac system and there was good bubbling and return of air once it was placed to suction. The chest tube was sutured to the anterior chest wall with a 0 silk suture and dressings were placed. The tube was placed to 20 cm Pleur-Evac suction. This demonstrated that once the initial bubbling ceased there was only an occasional residual bubble of air with Valsalva. Additionally, with the chest tube placed to water seal there was good fluctuation in the water trap. A chest x-ray is currently pending. The patient tolerated the procedure well.
[2016-04-13 22:49] VITALS: BP 112/73
[2016-04-14 02:46] VITALS: BP 113/79
[2016-04-14 07:07] VITALS: BP 113/81
--- NOTE | 2016-04-14 11:15 | DIAGNOSTIC IMAGING REPORT ---
PROCEDURE: XR CHEST 1 VIEW INDICATION: Pneumothorax TECHNIQUE: Portable AP view 10:57 a.m. COMPARISON: Chest x-ray 04/13/2016 FINDINGS: Small bore right chest tube in place with minimal residual right pneumothorax. Poor inspiration with some progression of bibasilar atelectasis. Heart size and part vessels are normal. Heart and mediastinum are normal. Thorax is normal. IMPRESSION: 1. Stable right chest tube with minimal residual right apical pneumothorax 2. Poor inspiration with progression of bibasilar atelectasis
[2016-04-14 11:30] VITALS: BP 123/78
--- NOTE | 2016-04-14 13:12 | Provider's Discharge Care Plan ---
Problem, Goal, Plan Problem List 1. Pneumothorax on right 2. History of arthroscopy of right shoulder
--- NOTE | 2016-04-14 13:12 | Provider's Discharge Care Plan ---
Problem, Goal, Plan Problem List 1. Pneumothorax on right 2. History of arthroscopy of right shoulder
--- NOTE | 2016-04-14 13:16 | Progress Note ---
Subjective General Pt. has no complaints, not short of breath but still on O2. Physical Exam Vital Signs / I&Os Vital Signs Date Time Temp Pulse Resp B/P Pulse O2 O2 Flow FiO2 Ox Delivery Rate 04/14 1130 98.8 89 16 123/78 92 Nasal 3.0 Cannula 04/14 0916 3.0 04/14 0707 98.4 90 16 113/81 94 Nasal 3.0 Cannula 04/14 0313 94 Nasal 3.0 Cannula 04/14 0246 98.8 91 16 113/79 91 Nasal 3.0 Cannula 04/13 2249 98.4 90 16 112/73 95 Nasal 3.0 Cannula 04/13 2010 Nasal 3.5 Cannula 04/13 1638 Nasal 3.5 Cannula 04/13 1627 92 16 119/76 94 Nasal 3.5 Cannula 04/13 1505 98.2 101 18 112/79 93 Nasal 3.5 Cannula I&O 04/13 0800 04/13 1600 04/14 0000 Intake Total 300 1000 600 Output Total 0 725 500 Balance 300 275 100 General Appearance Alert, Oriented X3, Cooperative, No acute distress Lungs Normal exam, Clear to auscultation, Normal air movement Extremities right shoulder in a sling-incisions without erythema Neurological Normal speech Psych/Mental Status Mental status normal Assessment and Plan Problem List 1. Pneumothorax on right Plan the chest x ray showed full lung expansion on my review and the 8 swedish tube is in place without air leak of fluctuation. It was removed without incident. Her main problems now is lower room air sats which I believe are from atelectasis and a small left effusion. I have ordered incentive spirometry and regular ambulation. If her sats improve she is OK for discharge.
[2016-04-14 14:35] VITALS: BP 111/77
[2016-04-14 18:15] VITALS: BP 127/90
[2016-04-14 23:02] VITALS: BP 113/75
[2016-04-15 06:58] VITALS: BP 98/57
--- NOTE | 2016-04-15 09:04 | DIAGNOSTIC IMAGING REPORT ---
PROCEDURE: XR CHEST 1 VIEW INDICATION: Pneumothorax TECHNIQUE: Single view chest. 06:31 hours COMPARISON: 04/14/2016 at 1057 hours FINDINGS: Interval removal of right-sided chest tube. No visible pneumothorax. Cardiomediastinal contour is stable. There is improved inflammatory effort and decreased opacity at both lung bases. Trace right pleural effusion. Minor bibasilar stranding. Intact osseous structures. IMPRESSION: 1. Interval removal of right-sided chest tube without evidence of pneumothorax. 2. Minor bibasilar stranding, considerably improved atelectatic changes compared to the previous study.
[2016-04-15 10:54] VITALS: BP 113/62
--- NOTE | 2016-04-15 11:21 | Progress Note ---
Subjective General No new complaints, breathing is getting better. Physical Exam Vital Signs / I&Os Vital Signs Date Time Temp Pulse Resp B/P Pulse O2 O2 Flow FiO2 Ox Delivery Rate 04/15 1054 98.4 82 17 113/62 92 Room Air 03/ 0745 2.0 / 0658 98.4 94 17 98/57 93 Nasal 2.0 Cannula 03/ 2302 99.1 95 16 113/75 95 Nasal 2.0 Cannula / 2000 Nasal 2.0 Cannula 03/04 1815 89 20 127/90 95 Nasal 3.0 Cannula 03/04 1609 100 24 92 Nasal 2.0 Cannula 03/04 1556 95 Room Air / 1435 98.1 86 18 111/77 97 Nasal 3.0 Cannula / 1130 98.8 89 16 123/78 92 Nasal 3.0 Cannula I&O / 0800 03/04 1600 03/05 0000 Intake Total 720 1340 240 Output Total 700 1500 1050 Balance 20 -160 -810 Pt. ambulating in the hallway, feels better. She reports her O2 sat was 89-90 on room air but still on O2 right now. breath sounds are full and she does not appear to be in distree General Appearance Alert, Oriented X3, Cooperative HEENT Normal exam Lungs Clear to auscultation Neurological Normal exam, Normal gait Assessment and Plan Problem List 1. Pneumothorax on right 2. History of arthroscopy of right shoulder
[2016-04-15 14:12] VITALS: BP 113/61
--- NOTE | 2016-04-16 15:46 | ED DISCHARGE INSTRUCTIONS ---
Patient: FRED YU General Instructions [facility] VisitID: [id number] [address] [place] [address] 45y, F Registration Date/Time: 04/12/2016 Right pneumothorax with respiratory distress. No tension pneumothorax. (Electronically signed by Jessica Hogan MD 04/16/2016 15:46)
--- NOTE | 2016-04-16 15:46 | ED MED RECONCILIATION SUMMARY ---
Patient: FRED YU Medication Reconciliation Report [facility] VisitID: [id number] [address] [place] [address] 45y, F Registration Date/Time: 04/12/2016 Weight: 148.7 kg Height/Length: 70 in. BMI: 47.0 ALLERGIES: Percocet The patient's Home Medications are listed below: THE FOLLOWING MEDICATIONS NEED TO BE RECONCILED: Albuterol Sulfate Inhalation Flonase Nasal Morphine Sulfate Oral (15 mg) 1-2 tablets, 5 xdaily, chronic back/shoulder/knee pain Symbicort Inhalation The source(s) of the original Home Medication information: Not obtained. The following Medications were given to the patient in the Emergency Department: Toradol [IVP] IVP 30 mg, administered: 04/12/2016 6:22:00 PM Dilaudid [IVP] IVP 1 mg, administered: 04/12/2016 6:23:00 PM IV NS IV Fluids bolus 0, then 1000 mL/hr, administered: 04/12/2016 8:00:00 PM Dilaudid [IVP] IVP 1 mg, administered: 04/12/2016 8:01:00 PM Zofran [IVP] IVP 4 mg, administered: 04/12/2016 8:03:00 PM The following Medications were prescribed to the patient: None.
--- NOTE | 2016-04-16 15:46 | ED MAR SUMMARY ---
..... Medication Administration Record [facility] [address] [place] [address] Patient: FRED YU Visit ID: [id number] 45y, F Weight: 148.7 kg Height/Length: 70 in BMI: 47 ALLERGIES: Percocet Given 18:22 04/12/2016 Terri Mcclain R.N. Medication Administered: TORADOL [IVP], Dose: 30 mg IVP over 30 second(s), Site: #1 left upper arm. Medication Ordered: Toradol IV 30 mg (NOW). Given 18:23 04/12/2016 Terri Mcclain R.N. Medication Administered: DILAUDID [IVP] (HYDROMORPHONE HCL PF), Dose: 1 mg IVP over 1 minute(s), Site: #1 left upper arm. Medication Ordered: Dilaudid IV 1 mg (HIGH ALERT MEDICATION, NOW). Start 20:00 04/12/2016 Terri Mcclain R.N., Stop 21:00 04/12/2016 Terri Mcclain R.N. Medication Administered: IV NS (SALINE), Dose: IV Fluids over 1 hour(s), Rate: 1000 mL/hr, Dispensed: 1000 mL bag, Site: #1 left upper arm. Medication Ordered: IV NS : initial bolus 1000 mL (1000 mL/hr), then none - (NOW). Given 20:04/12/2016 Terri Mcclain R.N. Medication Administered: DILAUDID [IVP] (HYDROMORPHONE HCL PF), Dose: 1 mg IVP over 30 second(s), Site: #1 left upper arm. Medication Ordered: Dilaudid IV 1 mg (HIGH ALERT MEDICATION, NOW). Given 20:04/12/2016 Terri Mcclain R.N. Medication Administered: ZOFRAN [IVP] (ONDANSETRON HCL), Dose: 4 mg IVP over 30 second(s), Site: #1 left upper arm. Medication Ordered: Zofran IV 4 mg (NOW).
--- NOTE | 2016-04-16 15:46 | ED MAR SUMMARY ---
..... Medication Administration Record [facility] [address] [place] [address] Patient: FRED YU Visit ID: [id number] 45y, F Weight: 148.7 kg Height/Length: 70 in BMI: 47 ALLERGIES: Percocet Given 18:22 04/12/2016 Terri Mcclain R.N. Medication Administered: TORADOL [IVP], Dose: 30 mg IVP over 30 second(s), Site: #1 left upper arm. Medication Ordered: Toradol IV 30 mg (NOW). Given 18:23 04/12/2016 Terri Mcclain R.N. Medication Administered: DILAUDID [IVP] (HYDROMORPHONE HCL PF), Dose: 1 mg IVP over 1 minute(s), Site: #1 left upper arm. Medication Ordered: Dilaudid IV 1 mg (HIGH ALERT MEDICATION, NOW). Start 20:00 04/12/2016 Terri Mcclain R.N., Stop 21:00 04/12/2016 Terri Mcclain R.N. Medication Administered: IV NS (SALINE), Dose: IV Fluids over 1 hour(s), Rate: 1000 mL/hr, Dispensed: 1000 mL bag, Site: #1 left upper arm. Medication Ordered: IV NS : initial bolus 1000 mL (1000 mL/hr), then none - (NOW). Given 20:04/12/2016 Terri Mcclain R.N. Medication Administered: DILAUDID [IVP] (HYDROMORPHONE HCL PF), Dose: 1 mg IVP over 30 second(s), Site: #1 left upper arm. Medication Ordered: Dilaudid IV 1 mg (HIGH ALERT MEDICATION, NOW). Given 20:04/12/2016 Terri Mcclain R.N. Medication Administered: ZOFRAN [IVP] (ONDANSETRON HCL), Dose: 4 mg IVP over 30 second(s), Site: #1 left upper arm. Medication Ordered: Zofran IV 4 mg (NOW).
--- NOTE | 2016-04-16 15:46 | ED MED RECONCILIATION SUMMARY ---
Patient: FRED YU Medication Reconciliation Report [facility] VisitID: [id number] [address] [place] [address] 45y, F Registration Date/Time: 04/12/2016 Weight: 148.7 kg Height/Length: 70 in. BMI: 47.0 ALLERGIES: Percocet The patient's Home Medications are listed below: THE FOLLOWING MEDICATIONS NEED TO BE RECONCILED: Albuterol Sulfate Inhalation Flonase Nasal Morphine Sulfate Oral (15 mg) 1-2 tablets, 5 xdaily, chronic back/shoulder/knee pain Symbicort Inhalation The source(s) of the original Home Medication information: Not obtained. The following Medications were given to the patient in the Emergency Department: Toradol [IVP] IVP 30 mg, administered: 04/12/2016 6:22:00 PM Dilaudid [IVP] IVP 1 mg, administered: 04/12/2016 6:23:00 PM IV NS IV Fluids bolus 0, then 1000 mL/hr, administered: 04/12/2016 8:00:00 PM Dilaudid [IVP] IVP 1 mg, administered: 04/12/2016 8:01:00 PM Zofran [IVP] IVP 4 mg, administered: 04/12/2016 8:03:00 PM The following Medications were prescribed to the patient: None.
--- NOTE | 2016-04-16 15:46 | ED DISCHARGE INSTRUCTIONS ---
Patient: FRED YU General Instructions [facility] VisitID: [id number] [address] [place] [address] 45y, F Registration Date/Time: 04/12/2016 Right pneumothorax with respiratory distress. No tension pneumothorax. (Electronically signed by Jessica Hogan MD 04/16/2016 15:46)
--- NOTE | 2016-04-20 19:31 | DISCHARGE SUMMARY ---
ADMIT DATE: 04/13/2016 DISCHARGE DATE: 04/15/2016 DISCHARGE DIAGNOSIS: 1. Right pneumothorax HOSPITAL COURSE: The patient is a 45-year-old woman admitted for a right-sided pneumothorax. She was found to have this pneumothorax 2 days after having shoulder reconstruction surgery at the [facility]. There were no specific mechanisms such as central lines or punctures likely to cause it. It is presumed is either a spontaneous pneumothorax or somehow related to positive pressure ventilation. The patient underwent small bore chest tube placed in the emergency department, but however, this tube quit functioning and the pneumothorax was incompletely relieved. She had a replacement tube thoracostomy on 04/13/2016, once again using a small bore 8-S[place] Leonean tube, which resulted in complete resolution of the pneumothorax. There was no ongoing air leak and the patient was managed with spirometry, tube suction and oxygen supplementation. The problem resolved quickly and the tube was removed and the patient discharged home. DISCHARGE INSTRUCTIONS/MEDICATIONS: follow up with PCP and ortho, call if shortness of breath
--- NOTE | 2016-04-20 19:31 | DISCHARGE SUMMARY ---
ADMIT DATE: 04/13/2016 DISCHARGE DATE: 04/15/2016 DISCHARGE DIAGNOSIS: 1. Right pneumothorax HOSPITAL COURSE: The patient is a 45-year-old woman admitted for a right-sided pneumothorax. She was found to have this pneumothorax 2 days after having shoulder reconstruction surgery at the [facility]. There were no specific mechanisms such as central lines or punctures likely to cause it. It is presumed is either a spontaneous pneumothorax or somehow related to positive pressure ventilation. The patient underwent small bore chest tube placed in the emergency department, but however, this tube quit functioning and the pneumothorax was incompletely relieved. She had a replacement tube thoracostomy on 04/13/2016, once again using a small bore 8-Barbadian tube, which resulted in complete resolution of the pneumothorax. There was no ongoing air leak and the patient was managed with spirometry, tube suction and oxygen supplementation. The problem resolved quickly and the tube was removed and the patient discharged home. DISCHARGE INSTRUCTIONS/MEDICATIONS: follow up with PCP and ortho, call if shortness of breath
== END 2016-04-15 16:15 | disposition home or self-care (01) | DRG 143 ==
LOC: ED SRH 17:14 → ACUTE2 SRH 19:01 → TRANS SRH 19:01 → ACUTE2 SRH 21:35
PROVIDERS: ADMIT Surgery
PROC: 0W9900Z Drainage of Right Pleural Cavity with Drainage Device, Open Approach (ICD-10-PCS; 2016-04-12)
PROC: 0W9900Z Drainage of Right Pleural Cavity with Drainage Device, Open Approach (ICD-10-PCS; principal; 2016-04-13)
DX: J93.83 Other pneumothorax (principal); J95.811 Postprocedural pneumothorax; Y83.8 Other surgical procedures as the cause of abnormal reaction of the patient, or of later complication, without mention of misadventure at the time of the procedure; T85.698A Other mechanical complication of other specified internal prosthetic devices, implants and grafts, initial encounter; J44.9 Chronic obstructive pulmonary disease, unspecified
CPT/HCPCS: 29230; 29264; 81719; 83455; 83526; 90100; 95059